=== PATIENT | male | born 1990 | race Caucasian/White ===

== ENCOUNTER 2022-10-26 13:16 | Emergency (ER) | payer BC, SELFPAY ==
[2022-10-26 13:23] VITALS: BP 131/78; PULSE 80; RESP 18; TEMP 36.6; O2SAT 97; BMI 33.2
--- NOTE | 2022-10-26 13:31 | CRLHL7_ITS ---
For Patients: As a result of the Century Cures Act, medical imaging exams and procedure reports are released immediately into your electronic medical record. You may view this report before your referring provider. If you have questions, please contact your health care provider. Indication: Testicular pain. Technique: Ultrasound of the scrotum and contents. Sonographic temple-scale images were obtained with spectral and color Doppler waveform and spectral waveform analysis of the testicles. Comparison: None. Findings: Both testicles are normal in size and echotexture. No masses. No suspicious calcifications. Arterial and venous color Doppler blood flow and spectral waveforms are present in both testicles. Epididymis: Unremarkable bilaterally. Normal blood flow. Other: No significant hydrocele. No sign of varicocele. Scrotal wall is normal. Left inguinal hernia with neck measuring approximately 1.5 cm. Impression: 1. No testicular torsion. 2. Findings suggestive of a left inguinal hernia, with neck measuring approximately 1.5 cm Dictated by Bonifacio Paredes MD @ 10/26/2022 3:03:52 PM (Electronically Signed)
--- NOTE | 2022-10-26 16:34 | ED_ITS ---
HPI - General Adult General Chief complaint: Urogenital Problems, Male Stated complaint: Testicular pain Time Seen by Provider: 10/26/22 16:17 Source: patient Mode of arrival: ambulatory Limitations: no limitations History of Present Illness HPI narrative: 32-year-old male coming in today complaining of testicular pain for the last 2 days. Pain is worse when walking. Does not wake him up at night. He denies na usea, vomiting or fevers. No chills. No pain with urination. No penile discharge. No sexual partners in about a year. No rectal pain. He denies any testicular swelling or erythema. Pain is mild and waxes and wanes. Related Data Home Medications Medication Instructions Recorded Confirmed trazodone 50 mg tablet 50 mg PO QPM 10/26/22 10/26/22 Allergies Allergy/AdvReac Type Severity Reaction Status Date / Time No Known Allergies Allergy Verified 10/26/22 12:14 Review of Systems Status of ROS: Reports: 6 or more systems reviewed and unremarkable except as noted in History and below PFSH PFS Medical History Depression ?F32.A - Depression, unspecified (ICD-10) History of back problems Family History Mother Thyroid cancer Maternal Grandmother Throat cancer Lung cancer Social History Smoking Status: Former smoker What tobacco products do you use: cigarettes Smoking quit date/years: <= 15 years ago Do you use any of these nicotine containing products: None Second hand tobacco smoke exposure: No service: No Exam Narrative: Exam Narrative: Well-nourished well-developed patient in no acute distress. Alert and oriented. Answers questions appropriately. Mood and affect are appropriate. Thoughts are goal oriented and rational. No tangential or magical thinking noted. Patient speaks in full sentences without needing to catch his breath. HEENT: Normocephalic atraumatic. Pupils are equally round reactive to light. Extraocular muscles are intact. Conjunctivae are moist without any icterus noted. Moist mucous membranes. : Normal external male genitalia. No swelling or erythema present. Right testicle is entirely normal. Left testicle has no tenderness over the testicle itself, he has acute tenderness directly over the epididymis. Penis entirely normal. There is no inguinal lymphadenopathy. Skin: Well perfused without any obvious rashes. Const: Vital Signs, click to edit/add: Vital Signs - 24 hr 10/26/22 13:23 Temperature 97.9 F Pulse Rate [Right Pulse Oximeter] 80 Respiratory Rate 18 Blood Pressure [Ri ght Upper Arm] 131/78 Pulse Oximetry 97 Oxygen Delivery Me thod Room Air Course Course ED Course: Patient did have an ultrasound done up prior to me seeing him, ultrasound shows a small left-sided inguinal hernia. Vital Signs Vital signs: Initial Vital Signs Temperature 97.9 F 10/26/22 13:23 Temperature Source Temporal Artery Scan 10/26/22 13:23 Pulse Rate 80 10/26/22 13:23 Respiratory Rate 18 10/26/22 13:23 Blood Pressure 131/78 10/26/22 13:23 Blood Pressure Mean 95 10/26/22 13:23 Blood Pressure Position Sitting 10/26/22 13:23 Pulse Oximetry 97 10/26/22 13:23 Oxygen Delivery Method Room Air 10/26/22 13:23 Vital Signs Temperature 97.9 F 10/26/22 13:23 Pulse Rate 80 10/26/22 13:23 Respiratory Rate 18 10/26/22 13:23 Blood Pressure 131/78 10/26/22 13:23 Pulse Oximetry 97 10/26/22 13:23 Oxygen Delivery Method Room Air 10/26/22 13:23 Temperature 97.9 F 10/26/22 13:23 Pulse Rate 80 10/26/22 13:23 Respiratory Rate 18 10/26/22 13:23 Blood Pressure 131/78 10/26/22 13:23 Pulse Oximetry 97 10/26/22 13:23 Oxygen Delivery Method Room Air 10/26/22 13:23 Medical Decision Making MDM Narrative Medical decision making narrative: 32-year-old male with clinical diagnosis of epididymitis. We will check a GC chlamydia prior to discharge today. Patient will be given Rocephin IM and oral azithromycin prior to discharge. Recommend follow-up with General surgery to discuss inguinal hernia. Lab Data Labs: Lab Results 10/26/22 Range/Units 16:58 C.trachomatis Ampl DNA NOT DETECTED (No Detected) N.gonorrhoeae Ampl DNA NOT DETECTED (No Detected) Imaging Data Scrotal ultrasound: Attestation: I have reviewed the pertinent imaging results. Radiologist's impression: Ultrasound of the scrotum and contents. Sonographic temple-scale images were obtained with spectral and color Doppler waveform and spectral waveform analysis of the testicles. Comparison: None. Findings: Both testicles are normal in size and echotexture. No masses. No suspicious calcifications. Arterial and venous color Doppler blood flow and spectral waveforms are present in both testicles. Epididymis: Unremarkable bilaterally. Normal blood flow. Other: No significant hydrocele. No sign of varicocele. Scrotal wall is normal. Left inguinal hernia with neck measuring approximately 1.5 cm. Impression: 1. No testicular torsion. 2. Findings suggestive of a left inguinal hernia, with neck measuring approximately 1.5 cm Discharge Plan Discharge Clinical Impression: Epididymitis Condition: Stable Additional Instructions: Ultrasound shows a small left-sided hernia. Recommend you follow-up with a general surgeon to discuss possible repair of this hernia. This is not an emergency. Prescriptions: No Action trazodone 50 mg tablet 50 mg PO QPM Follow Up/Referrals: Provider,Not a Local [Primary Care Provider] - Stand Alone Forms: MyHealth Info Instructions
[2022-10-26] MEDS: AZITHROMYCIN 250 MG TABLET 1000 MG PO (16:48)
[2022-10-26] MEDS: cefTRIAXone 500 MG VIAL IM (16:48)
[2022-10-26] MEDS: LIDOCAINE 1% 5 ml (pf) 5 ML VIAL 1 ML IM (16:48)
[2022-10-26 18:53] LABS: Chlamydia DNA Amplified* NOT DETECTED (No Detected); GC DNA Amplified* NOT DETECTED (No Detected)
== END 2022-10-26 17:11 | disposition home or self-care (01) ==
PROVIDERS: Emergency Provider Family Medicine
DX: N45.1 Epididymitis (principal)
CPT/HCPCS: 76870; 87491; 87591; 93976; 96372; 99283; 99284; A9270; J0696

== ENCOUNTER 2023-07-30 11:02 | Outpatient (CLI) | payer OTHER, SELFPAY ==
--- OUTSIDE RECORDS SUMMARY | 2023-07-31 23:10 | XMS_ITS | Clinical Summary ---
Author Organization [facility] Address [address] [place] [address] Care Team Providers Care Cottrell Blower Name Role Phone Elsewhere, Pcp Primary Care Provider Unavailabl e Source Comments Patient records contain information from all sites at [facility]. For routine questions regarding patient records, call [phone] during business hours, M-F 8:00 AM - 5:00 PM Central Time. Record requests for emergency care only can be directed to [phone] at any time.[facility] Allergies No known active allergies Medications Medication [...] age to complete this topic Care Teams Cottrell Blower Relationship Specialty Start Date End Date Elsewhere, Pcp PCP - General Internal Medicine 06/21/18
--- OUTSIDE RECORDS SUMMARY | 2023-07-31 23:10 | XMS_ITS | Clinical Summary ---
Author Organization [facility] Address [place], [place] [address] Care Team Providers Care Well Service Derrick Worker Name Role Phone [facility] Primary Care Provider Unavail able Allergies No known active allergies Medications Medication Sig Dispensed Refills Start Date End Date Status sertraline (ZOLOFT) 100 mg tabletIndications:Border line personality disorder (HC),Generalized anxiety disorder,Major depressive disorder, recurrent, severe without psychotic features (HC),Persistent depressive disorder,Posttraumatic stress disorder,Alcohol use disorder, severe, in early remission (HC) Take 1 Tablet (100 mg) by mouth once daily. 90 Tablet 05/22/19 24 024 Discontinued (*Medication adjustment) traZODone (DESYREL) 50 mg tabletIndications:Major depressive disorder, recurrent, severe without psychotic features (HC) Take 1 Tablet (50 mg) by mouth at bedtime if needed for Sleep. 90 Tablet 3 05/22/19 24 Suspended Additional Information durable medical equipment (DME)Indications:Carpal tunnel syndrome on both sides Wrist brace rt and lft 06/29/19 24 Suspended Additional Information atorvastatin (LIPITOR) 20 mg tabletIndications:Famili al hypercholesterolemia Take 1 Tablet (20 mg) by mouth at bedtime. 100 Tablet 3 07/05/19 24 Suspended Additional Information sertraline (ZOLOFT) 25 mg tabletIndications:Alcoho l use disorder, severe, in early remission (HC),Borderline personality disorder (HC),Generalized anxiety disorder,Major depressive disorder, recurrent, severe without psychotic features (HC),Persistent depressive disorder,Posttraumatic stress disorder Take 1 Tablet (25 mg) by mouth once daily. In addition to a 50 mg tablet for a total of 75 mg once daily 30 Tablet 2 07/19/19 24 Suspended Additional Information sertraline (ZOLOFT) 50 mg tabletIndications:Genera lized anxiety disorder,Major depressive disorder, recurrent, severe without psychotic features (HC),Persistent depressive disorder,Posttraumatic stress disorder Take 1 Tablet (50 mg) by mouth once daily. 30 Tablet 2 07/19/19 24 Suspended Additional Information ibuprofen (ADVIL; MOTRIN) 600 mg tabletIndications:Acute pain of right shoulder Take 1 Tablet (600 mg) by mouth three times daily with meals. Maximum of 3200 mg in 24 hours. 42 Tablet 1 07/27/19 24 Suspended Additional Information omeprazole (PRILOSEC) 40 mg Delayed-Release capsuleIndications:Gastr ic reflux Take 1 Capsule (40 mg) by mouth once daily before a meal. 14 Capsule 07/27/19 Suspended Additional Information Active Problems Problem Noted Date Diagnosed Date Aspiration pneumonia of left lower lobe due to v omit 07/31/2023 Acute respiratory failure 07/30/2023 Observed seizure-like activity 07/30/2023 Continuous cannabis use 07/19/2023 Mixed hyperlipidemia 10/26/2021 [...] Encounters Date Type Department Care Team Description 07/31/2023 Travel 07/30/2023 2:32 PM CDT - Present Hospital Encounter [address] [facility] [id number] s, U Hospitalist Luca Spaulding MD 07/27/2023 10:10 AM CDT Office Visit [address] [facility] [phone] Mike Perdue MD [facility]; Shoulder Injury (Stepped off equipment, as falling, over extended shoulder; right shoulder ); Ankle Injury; Follow Up (Seen at [facility] the day of injury on 07/22/23; Seen by Dr. Brian for a follow up; Work Comp wants patient to continue to be seen through [facility] ) 07/27/2023 Travel 07/23/2023 7:30 AM CDT Office Visit [address] [phone] Krunal Brian MD Follow Up (left ankle and right shoulder injury) 07/23/2023 Travel 07/22/2023 12:55 PM CDT Office Visit [facility] [address] [place] [phone] Fall 07/22/2023 Travel 07/19/2023 2:00 PM CDT Office Visit [facility] [address] [place] [address] Preston Yee MD Follow Up; Medication Management (feeling, I'm doing well, it's my day off) 07/19/2023 Telephone [facility] [address] [place] [address] Preston Yee MD Form (release of information form) 07/19/2023 Travel 06/29/2023 7:50 AM CDT Office Visit [facility] [address] [place] [address] Imelda Denis MD Numbness (both hands, couple months, painful numbness, thumb middle and ring finger primarily) 06/29/2023 Travel 06/25/2023 Telephone [facility] [address] [place] [address] Preston Yee MD Follow Up 05/30/2023 Telephone [facility] [address] [place] [address] Preston Yee MD 05/30/2023 Telephone [facility] [address] [place] [address] Preston Yee MD Appointment (Appt on 06/06, N/V) 05/22/2023 2:00 PM CDT Office Visit [facility] [address] [facility] [place] [address] Preston Yee MD Medication Management (Things are so so) 05/22/2023 Travel 05/18/2023 8:30 AM CDT Telemedicine [facility] [address] [place] [address] Preston Yee MD Error-please disregard; Medication Management (feeling, pretty good, really good) 05/18/2023 Travel 05/14/[address] [address] Preston Yee MD Refill Request (Trazodone) 05/10/2023 Refill [facility] [address] [place] [address] Preston Yee MD Refill Request (Trazodone) 05/08/2023 1:30 PM CDT Office Visit [facility] [address] [place] [address] Bárbara Manning, Vomiting (1 day); Nausea 05/08/2023 Nurse Triage [facility] [address] [place] [address] Bárbara Manning, Vomiting (Vomitting started this am at 2am dry heaves later) 05/08/2023 Travel from Last 3 Months Immunizations Name Administration Dates Next Due COVID-19 vaccine (AppSheet 30mcg/0.3mL) 12YO+ JESSICA-SUCROSE PF MDV 03/23/2021,03/02/2021 Hepatitis B (Peds) 04/14/2002 Influenza [...] Sign Reading Time Taken Comments Blood Pressure 122/59 07/31/2023 10:00 PM CDT Pulse 62 07/31/2023 10:00 PM CDT Temperature 37.7 ??C (99.8 ??F) 07/31/2023 8:00 PM CD T Respiratory Rate 16 07/31/2023 10:00 PM CDT Oxygen Saturation 97% 07/31/2023 10:00 PM CDT Inhaled Oxygen Concentration - - Weight 89.7 kg (197 lb 12 oz) 07/31/2023 2:00 AM CDT Height 182.9 cm (6') 07/30/2023 2:55 PM CDT Body Mass Index 26.82 07/30/2023 2:55 PM CDT Plan of Treatment Upcoming Encounters Date Type Department Care Team (Late st Contact Info) Description 08/10/2023 8:00 AM CDT Office Visit [facility] [address] [place] [address] Preston Yee MD [address] [place] [address] 08/10/2023 9:10 AM CDT Office Visit [address] [phone] Mike Perdue MD [address] [place] [address] 08/31/2023 8:00 AM CDT Office Visit [facility] [address] [place] [address] Preston Yee MD [address] [place] [address] 09/20/2023 8:00 AM CDT Office Visit [facility] [address] [place] [address] Preston Yee MD [address] [place] [address] 10/12/2023 8:00 AM CDT Office Visit [facility] [address] [place] [address] Preston Yee MD [address] [place] [address] 11/02/2023 8:00 AM CDT Office Visit [facility] [address] [place] [address] Preston Yee MD [address] [place] [address] Health Maintenance Due Date Last Done Comments [...] for age 6-64 Completed 06/29/19 24 Procedures The patient is currently admitted. The information in this section might not be complete until the patient is discharged. Procedure Name Priority Date/Time Associated Diagnosis Comments POTASSIUM Timed 07/31/2023 10:29 PM CDT XR CHEST 1 VIEW PORTABLE STAT 07/31/2023 9:53 PM CDT GLUCOSE METER Timed 07/31/2023 9:25 PM CDT SCAN-CARDIAC STRIP 07/31/2023 6: 58 PM CDT GLUCOSE METER Timed 07/31/2023 5:13 PM CDT URINALYSIS MICROSCOPIC Timed 07/31/2023 3:55 PM CDT PROTEIN/CREAT RATIO,URINE Today 07/31/2023 3:55 PM CDT UA W/ SEDIMENT EXAM REFLEXED PER CRITERIA Today 07/31/2023 3:55 PM CDT TROPONIN T (HS) ONE TIME Today 07/31/2023 1:13 PM CDT PROCALCITONIN Today 07/31/2023 1:13 PM CDT LACTATE VENOUS Today 07/31/2023 1:13 PM CDT PROTIME-INR Today 07/31/2023 1:13 PM CDT POTASSIUM Timed 07/31/2023 1:13 PM CDT GLUCOSE METER Timed 07/31/2023 12:26 PM CDT IR LUMBAR PUNCTURE DIAGNOSTIC W GUIDANCE Routine 07/31/2023 12:09 PM CDT PROTEIN CSF,TOTAL SOLITARIO 07/31/2023 12: 00 PM CDT SPINAL FLUID CULT, STAIN Today 07/31/2023 12:00 PM CDT MENINGITIS/ENCEPHALIT IS PATHOGEN PANEL, MULTIPLEX PCR (CSF) Today 07/31/2023 12:00 PM CDT GLUCOSE,CSF Routine 07/31/2023 12:00 PM CDT CSF CELL COUNT/DIFF Today 07/31/2023 1 2:00 PM CDT ECHO TTE COMPLETE W CONTRAST Routine 07/31/2023 11:30 AM CDT SCAN-CARDIAC STRIP 07/31/2023 11 :06 AM CDT US RENAL AND BLADDER COMPLETE Routine 07/31/2023 7:55 AM CDT XR CHEST 1 VIEW PORTABLE Routine 07/31/2023 5:20 AM CDT CWS PATH REVIEW HEMATOLOGY Timed 07/31/2023 4:49 AM CDT RED CELL MORPHOLOGY Timed 07/31/2023 4 :49 AM CDT PLATELET ESTIMATE Timed 07/31/2023 4:4 9 AM CDT MANUAL DIFFERENTIAL Timed 07/31/2023 4 :49 AM CDT HEPATIC FUNCTION PANEL SOLITARIO 07/31/2023 4:49 AM CDT PHOSPHORUS SOLITARIO 07/31/2023 4:49 AM CDT CBC WITH AUTO DIFFERENTIAL Early AM 07/31/2023 4:49 AM CDT MAGNESIUM Early AM 07/31/2023 4:49 AM CDT LEVETIRACETAM (KEPPRA) Timed 07/31/2023 4:49 AM CDT CBC WITH AUTO DIFFERENTIAL Early AM 07/31/2023 4:49 AM CDT BASIC METABOLIC PANEL Early AM 07/31/2023 4:49 AM CDT CK TOTAL Timed 07/31/2023 4:49 AM CDT TRIGLYCERIDES Timed 07/31/2023 4:49 AM CDT GLUCOSE METER Timed 07/31/2023 4:48 AM CDT MR HEAD BRAIN WWO Routine 07/31/2023 4:3 2 AM CDT XR SKULL EQUAL OR LESS 3 VIEWS Routine 07/31/2023 3:23 AM CDT GLUCOSE METER Timed 07/30/2023 10:53 PM CDT PHOSPHORUS Timed 07/30/2023 10:10 PM CDT BH STAT DRUG SCREEN STAT 07/30/2023 7 :59 PM CDT LACTATE VENOUS Timed 07/30/2023 6:18 PM CDT AMMONIA Today 07/30/2023 6:18 PM CDT ETHYLENE GLYCOL Today 07/30/2023 6:18 PM CDT BLOOD CULTURE Today 07/30/2023 4:46 PM CDT BLOOD GAS,VENOUS STAT 07/30/2023 4:45 PM CDT BLOOD CULTURE Today 07/30/2023 4:45 PM CDT GLUCOSE METER Timed 07/30/2023 4:33 PM CDT CK TOTAL SOLITAIRO 07/30/2023 3:49 PM CDT TROPONIN T (HS) ONE TIME SOLITARIO 07/30/2023 3:49 PM CDT CBC WITH AUTO DIFFERENTIAL Today 07/30/2023 3:49 PM CDT ETHANOL SERUM OR PLASMA Today 07/30/2023 3:49 PM CDT CBC WITH AUTO DIFFERENTIAL Today 07/30/2023 3:49 PM CDT PHOSPHORUS Today 07/30/2023 3:49 PM CDT MAGNESIUM Today 07/30/2023 3:49 PM CDT BASIC METABOLIC PANEL Today 07/30/2023 3:49 PM CDT HEMOGLOBIN A1C Today 07/30/2023 3:49 PM CDT LACTATE VENOUS Today 07/30/2023 3:49 PM CDT XR ABDOMEN 1 VIEW PORTABLE Routine 07/30/2023 3:22 PM CDT XR CHEST 1 VIEW PORTABLE SOLITARIO 07/30/2023 3:22 PM CDT HEPATIC FUNCTION PANEL Routine 06/29/2023 8:35 AM CDT Transaminitis LIPID PANEL W REFLEX MEASURED LDL Routine 06/29/2023 8:35 AM CDT Mixed hyperlipidemia ANTI HCV Routine 10/25/2021 8:37 AM CDT Need for hepatitis C screening test ANTI HIV 1/2 Routine 03/29/2015 5:28 PM [employer]ENIOR CHEMICAL ENGINEER Screen for STD (sexually transmitted disease) from Last 3 Months or Most Recently Relevant to Health Maintenance Results * POTASSIUM (07/31/2023 10:29 PM CDT) Only the most recent of2 resultswithin the time period is included. POTASSIUM 4.3 3.5 - 5.1 mmol/L 07/31/2023 10:46 PM CDT [facility] Blood BLOOD SPECIMEN / Unknown Venipuncture / Unknown 07/31/2023 10:29 PM CDT 07/31/2023 10:32 PM CDT Moi Chahal RN CHEMISTRY [facility] SENDOUT INTERNAL ZIP [phone] [place] [address] * XR CHEST 1 VIEW PORTABLE (07/31/2023 9:53 PM CDT) Only the most recent of3 resultswithin the time period is included. Anatomical Region Laterality Modality HEART, THORAX, CHEST Computed Ra diography 07/31/2023 9:53 PM CDT Impressions 07/31/2023 10:04 PM CDT Heart size and pulmonary vascularity normal. Opacities within the the right lower lung field are new since the earlier exam and could represent subsegmental atelectasis or developing pneumonia. No effusions. Endotracheal tube tip 3.8 cm above the caleb. Enteric tube is coiled in the proximal stomach. Narrative 07/31/2023 10:04 PM CDT For Patients: As a result of the Cures Act, medical imaging exams and procedure reports are released immediately into your electronic medical record. You may view this report before your referring provider. If you have questions, please contact your health care provider. EXAM: XR CHEST 1 VIEW PORTABLE LOCATION: [facility] DATE: 07/31/2023 INDICATION: Eval Lung Infiltrate COMPARISON: 07/31/2023 Procedure Note Corey Funk MD - 07/31/2023 For Patients: As a result of the Cures Act, medical imagingexams and procedure reports are released immediately into your electronicmedical record. You may view this report before your referring provider.If you have questions, please contact your health care provider. EXAM: XR CHEST 1 VIEW PORTABLE LOCATION: [facility] DATE: 07/31/2023 INDICATION: Eval Lung Infiltrate COMPARISON: 07/31/2023 IMPRESSION: Heart size and pulmonary vascularity normal. Opacities within the theright lower lung field are new since the earlier exam and could representsubsegmental atelectasis or developing pneumonia. No effusions.Endotracheal tube tip 3.8 cm above the caleb. Enteric tube is coiled inthe proximal stomach. [facility] * GLUCOSE METER (07/31/2023 9:25 PM CDT) Only the most recent of6 resultswithin the time period is included. GLUCOSE METER 97 65 - 100 mg/dL 07/31/2023 9:30 PM CDT [facility] Blood BLOOD SPECIMEN / Unknown 07/31/2023 9:25 PM CDT 07/31/2023 9:30 PM CDT Luca Carpio MD CHEMISTRY [facility] SENDOUT INTERNAL ZIP [phone] [place] [address] * SCAN-CARDIAC STRIP (07/31/2023 6:58 PM CDT) Scanner OTHER * (ABNORMAL) URINALYSIS MICROSCOPIC (07/31/2023 3:55 PM CDT) RBC 6-10(A) 0-2, None Seen /HPF 07/31/2023 5:18 PM CDT [facility] WBC 0-2 0-2, 3-5, None Seen /HPF 07/31/2023 5:18 PM CDT [facility] BACTERIA None Seen None Seen, Rare, Few Bacteria/ HPF 07/31/2023 5:18 PM CDT [facility] EPITHELIAL CELLS None Seen None Seen, Few Epi/HPF 07/31/2023 5:18 PM CDT [facility] HYALINE CASTS 3-5 0-2, 3-5 /LPF 07/31/2023 5:18 PM CDT [facility] URIC ACID CRYSTALS Present(A) (none) 07/31/2023 5:18 PM CDT [facility] Urine URINE SPECIMEN / Unknown Non-Blood / Unknown 07/31/2023 3:55 PM CDT 07/31/2023 4:22 PM CDT Kranthi Camejo MD URINE [facility] SENDOUT INTERNAL ZIP [phone] [place] [address] * (ABNORMAL) PROTEIN/CREAT RATIO,URINE (07/31/2023 3:55 PM CDT) PROTEIN QUANT,RAND URINE 24(H) 1 - 14 mg/dL 07/31/2023 4:54 PM CDT [facility] CREAT,RANDOM URINE 108.0 39.0 - 259.0 mg/dL 07/31/2023 4:54 PM CDT [facility] PROT/CREAT RATIO,UR 0.2(H) <0.2 07/31/2023 4:54 PM CDT [facility] Urine URINE SPECIMEN / Unknown Non-Blood / Unknown 07/31/2023 3:55 PM CDT 07/31/2023 4:22 PM CDT Kranthi Camejo MD URINE [facility] SENDOUT INTERNAL ZIP [phone] [place] [address] * (ABNORMAL) UA W/ SEDIMENT EXAM REFLEXED PER CRITERIA (07/31/2023 3:55 PM CDT) COLOR Yellow Yellow Color 07/31/2023 4:29 PM CDT [facility] CLARITY Cloudy(A) Clear Clarity 07/31/2023 4:29 PM CDT [facility] SPECIFIC GRAVITY,URINE 1.015 1.010, 1.015, 1.020, 1.025 07/31/2023 4:29 PM CDT [facility] PH,URINE 5.5 6.0, 7.0, 8.0, 5.5, 6.5, 7.5, 8.5 07/31/2023 4:29 PM CDT [facility] UROBILINOGEN, QUALITATIVE Normal Normal EU/dl 07/31/2023 4:29 PM CDT [facility] PROTEIN, URINE Trace(A) Negative mg/dL 07/31/2023 4:29 PM CDT [facility] GLUCOSE, URINE Negative Negative mg/dL 07/31/2023 4:29 PM CDT [facility] KETONES,URINE Negative Negative mg/dL 07/31/2023 4:29 PM CDT [facility] BILIRUBIN,URI NE Negative Negative 07/31/2023 4:29 PM CDT [facility] OCCULT BLOOD,URINE Negative Negative 07/31/2023 4:29 PM CDT [facility] NITRITE Negative Negative 07/31/2023 4:29 PM CDT [facility] LEUKOCYTE ESTERASE Trace(A) Negative 07/31/2023 4:29 PM CDT [facility] Urine URINE SPECIMEN / Unknown Non-Blood / Unknown 07/31/2023 3:55 PM CDT 07/31/2023 4:22 PM CDT Kranthi Camejo MD URINE [facility] SENDOUT INTERNAL ZIP [phone] [place] [address] * (ABNORMAL) TROPONIN T (HS) ONE TIME (07/31/2023 1:13 PM CDT) Only the most recent of2 resultswithin the time period is included. TROPONIN T HS 25(H) 6-15 ng/L ng/L 07/31/2023 1:51 PM CDT [facility] Blood BLOOD SPECIMEN / Unknown Capillary / Unknown 07/31/2023 1:13 PM CDT 07/31/2023 1:27 PM CDT Narrative [facility] - 07/31/2023 1:51 PM CDT hs-cTnT (Elecsys Troponin T Gen 5) concentration (s) above the sex-specific 99th percentile (16 ng/L or greater for males or 11 ng/L or greater for females) are indicative of myocardial injury. If initial hs-cTnT <=100 ng/L at presentation, a 0h/2h ABSOLUTE (ng/L) delta change (rising or falling) of >=10 ng/L suggests a significant change, whereas a 0h/2h delta change <=3 ng/L suggests no significant change. If initial hs-cTnT >100 ng/L at presentation, a 0h/2h/ RELATIVE (percent, %) delta change of 20% is suggested to distinguish patients with acute vs. chronic myocardial injury. There are multiple etiologies that can cause hs-cTnT increases above the 99th percentile (myocardial injury) other than acute myocardial infarction. Clinical context and careful clinical evaluation are critical for diagnosis and risk-stratification. The diagnosis of acute myocardial infarction requires a rising and/or falling pattern in hs-cTnT concentrations with at least one value above the sex-specific 99th percentile PLUS at least one of the following clinical criteria: ischemic symptoms, new or presumed new significant ST-T wave changes or new LBBB, development of pathological Q waves, imaging evidence of new loss of viable myocardium or new regional wall motion abnormality, or identification of intracoronary atherothrombosis or an acute angiographic culprit on coronary angiography. In appropriate low-risk patients with a non-ischemic electrocardiogram without active chest pain with a symptom onset >3-hours without recurrence, a single initial hs-cTnT<6 ng/L identifies patient with a very low risk in emergency department patient population. Cindi Erickson NP CHEMISTRY Performing Organization Address City/[facility]/ZIP Co de Phone Number [facility] SENDOUT INTERNAL ZIP [phone] [place] [address] * LACTATE VENOUS (07/31/2023 1:13 PM CDT) Only the most recent of3 resultswithin the time period is included. LACTATE,VENOUS 1.7 0.5 - 2.0 mmol/L 07/31/2023 1:51 PM CDT [facility] Blood BLOOD SPECIMEN / Unknown Capillary / Unknown 07/31/2023 1:13 PM CDT 07/31/2023 1:27 PM CDT Mulu BOWSER CHEMISTRY Performing Organization Address [facility]/ZIP Co de Phone Number [facility] SENDOUT INTERNAL ZIP [phone] [place] [phone] * PROCALCITONIN (07/31/2023 1:13 PM CDT) PROCALCITONIN 0.11 ng/ml 07/31/2023 1:59 PM CDT [facility] Blood BLOOD SPECIMEN / Unknown Capillary / Unknown 07/31/2023 1:13 PM CDT 07/31/2023 1:27 PM CDT Narrative [facility] - 07/31/2023 1:59 PM CDT Procalcitonin for initial assessment of Lower Respiratory Tract Infection: Results Interpretation <0.10 ng/mL Antibiotic therapy strongly discoraged. ??Indicates absent of bacterial infection. * 0.10 - 0.25 ng/mL Antibiotic therapy discouraged. ??Bacterial infection unlikely. * 0.26 - 0.50 ng/mL Antibiotic therapy encouraged. ??Bacterial infection possible. >0.50 ng/mL Antibiotic therapy strongly encouraged. ??Suggestive of presence of bacterial infection. *Antibiotic therapy should be considered regardless of PCT result if the patient is clinically unstable, is at high risk for adverse outcome, has strong evidence of bacterial pathogen, or the clinical context indicates antibiotic therapy is warranted. ??If antibiotics are withheld, reassess if symptoms persist/worsen and/or repeat PCT measurement within 6-24 hours. ? In order to assess treatment success and to support a decision to discontinue antibiotic therapy, follow up samples should be tested once every 1-2 days, based upon physician discretion taking into account patient's evolution and progress. Procalcitonin for initial assessment of severe sepsis risk: Results Interpretation <0.5 ng/ml A PCT level below 0.5 ng/ml on the first day of ICU admission is associated with a low risk for progression to severe sepsis and/or septic shock. > 2.0 ng/mL A PCT level above 2.0 ng/mL on the first day of ICU admission is associated with a high risk for progression to severe sepsis and/or septic shock. Note: Concentrations < 0.5 ng/mL do not exclude an infection, on account of localized infections (without systemic signs) which can be associated with such low concentrations, or a systemic infection in its initial stages(< 6 hours). Furthermore, increased procalcitonin can occur without infection. PCT concentrations between 0.5 and 2.0 ng/mL should be interpreted taking into account the patient's history. It is recommended to retest PCT within 6-24 hours if any concentrations < 2 ng/mL are obtained. Mulu [facility] S[facility] SENDOUT INTERNAL [facility] [phone] [place] [address] * (ABNORMAL) PROTIME-INR (07/31/2023 1:13 PM CDT) INR 1.1 <1.3 07/31/2023 1:39 PM CDT [facility] PROTIME 12.7(H) 10.3 - 12.3 sec 07/31/2023 1:39 PM CDT [facility] Blood BLOOD SPECIMEN / Unknown Capillary / Unknown 07/31/2023 1:13 PM CDT 07/31/2023 1:27 PM CDT Narrative [facility] - 07/31/2023 1:39 PM CDT ?Therapeutic Range 2.0-3.0 for most anticoagulated patients 2.5-3.5 or 4.0 for high risk patients The INR is only used for patients on stable oral anticoagulant therapy. It makes no significant contribution to the diagnosis or treatment of patients whose Protime is prolonged for other reasons. INR results are increased when heparin levels exceed 1.0 U/mL, which corresponds to an aPTT >125 seconds if the patient is on UFH. Mulu [facility]AS HEMATOLOGY [facility] SENDOUT INTERNAL ZIP [phone] [place] [address] * IR LUMBAR PUNCTURE DIAGNOSTIC W GUIDANCE (07/31/2023 12:09 PM CDT) Anatomical Region Laterality Modality X-Ray Angiograph y, Other, Other 07/31/2023 12:0 9 PM CDT Impressions 07/31/2023 9:32 PM CDT CONCLUSION: 1. Fluoroscopically-guided lumbar puncture yielding 12 mL of clear, colorless cerebrospinal fluid. 2. See lab results for further details. CPT codes included for physician reference only: [id number] Narrative 07/31/2023 9:32 PM CDT For Patients: As a result of the Century Cures Act, medical imaging exams and procedure reports are released immediately into your electronic medical record. You may view this report before your referring provider. If you have questions, please contact your health care provider. [facility] FLUOROSCOPICALLY GUIDED LUMBAR PUNCTURE 07/31/2023 12:09 PM CDT OPERATIONS: FLUOROSCOPICALLY GUIDED LUMBAR PUNCTURE INDICATION: 32-year-old with seizures, status epilepticus. Lumbar puncture has been requested to obtain cerebrospinal fluid (CSF) for analysis. CONSENT: The procedure and its indications, major risks, benefits, and alternatives were discussed. Risks including, but not limited to, pain, headache, hemorrhage, infection, nerve damage, spinal cord damage, and allergic reaction were discussed. Understanding was acknowledged, and a signed informed consent was obtained. FLUOROSCOPIC TIME: 0.6 minutes AIR KERMA: 15 mGy ESTIMATED BLOOD LOSS: Minimal PERFORMING PHYSICIAN(S): Denver Gao M.D. PROCEDURE: The patient was placed in the prone position upon the fluoroscopic table. The skin of the back was prepped and draped in sterile fashion. Using fluoroscopic guidance, the L4-5 level was localized. The skin was infiltrated with 1% lidocaine. Using direct fluoroscopic visualization, a 20 gauge spinal needle was advanced into the thecal sac at the L4-5 level. 12 mL of clear, colorless CSF was obtained in total. This was divided between 4 labeled tubes. The needle was then removed. A dressing was applied. The procedure appeared well-tolerated. There was no apparent complication. Procedure Note Denver Gao MD - 07/31/2023 For Patients: As a result of the Century Cures Act, medical imagingexams and procedure reports are released immediately into your electronicmedical record. You may view this report before your referring provider.If you have questions, please contact your health care provider. [facility] FLUOROSCOPICALLY GUIDED LUMBAR PUNCTURE 07/31/2023 12:09 PM CDT OPERATIONS: FLUOROSCOPICALLY GUIDED LUMBAR PUNCTURE INDICATION: 32-year-old with seizures, status epilepticus. Lumbar puncturehas been requested to obtain cerebrospinal fluid (CSF) for analysis. CONSENT: The procedure and its indications, major risks, benefits, andalternatives were discussed. Risks including, but not limited to, pain,headache, hemorrhage, infection, nerve damage, spinal cord damage, andallergic reaction were discussed. Understanding was acknowledged, and asigned informed consent was obtained. FLUOROSCOPIC TIME: 0.6 minutes AIR KERMA: 15 mGy ESTIMATED BLOOD LOSS: Minimal PERFORMING PHYSICIAN(S): Denver Gao M.D. PROCEDURE: The patient was placed in the prone position upon thefluoroscopic table. The skin of the back was prepped and draped in sterilefashion. Using fluoroscopic guidance, the L4-5 level was localized. Theskin was infiltrated with 1% lidocaine. Using direct fluoroscopicvisualization, a 20 gauge spinal needle was advanced into the thecal sacat the L4-5 level. 12 mL of clear, colorless CSF was obtained in total.This was divided between 4 labeled tubes. The needle was then removed. Adressing was applied. The procedure appeared well-tolerated. There was noapparent complication. IMPRESSION: CONCLUSION: 1. Fluoroscopically-guided lumbar puncture yielding 12 mL of clear,colorless cerebrospinal fluid. 2. See lab results for further details. CPT codes included for physician reference only: [id number] Mulu VARGAS IR * MENINGITIS/ENCEPHALITIS PATHOGEN PANEL, MULTIPLEX PCR (CSF) (07/31/2023 12:00 PM CDT) Escherichia coli NOT Detected NOT Detected 07/31/2023 4:51 PM CDT [facility] Haemophilus influenza NOT Detected NOT Detected 07/31/2023 4:51 PM CDT [facility] Listeria monocytogenes NOT Detected NOT Detected 07/31/2023 4:51 PM CDT [facility] Neisseria meningitides NOT Detected NOT Detected 07/31/2023 4:51 PM CDT [facility] Streptococcus agalactiae NOT Detected NOT Detected 07/31/2023 4:51 PM CDT [facility] Streptococcus pneumoniae NOT Detected NOT Detected 07/31/2023 4:51 PM CDT [facility] Cytomegalovirus NOT Detected NOT Detected 07/31/2023 4:51 PM CDT [facility] Enterovirus NOT Detected NOT Detected 07/31/2023 4:51 PM CDT [facility] Herpes simplex virus 1 NOT Detected NOT Detected 07/31/2023 4:51 PM CDT [facility] Herpes simplex virus 2 NOT Detected NOT Detected 07/31/2023 4:51 PM CDT [facility] Human herpesvirus 6 NOT Detected NOT Detected 07/31/2023 4:51 PM CDT [facility] Human parechovirus NOT Detected NOT Detected 07/31/2023 4:51 PM CDT [facility] Varicella zoster virus NOT Detected NOT Detected 07/31/2023 4:51 PM CDT [facility] Cryptococcus neoformans/gattii NOT Detected NOT Detected 07/31/2023 4:51 PM CDT [facility] Cerebrospinal Fluid CEREBROSPINAL FLUID SPECIMEN / Unknown Non-Blood / Unknown 07/31/2023 12:00 PM CDT 07/31/2023 12:39 PM CDT [facility] - 07/31/2023 4:51 PM CDT This test detects the presence of nucleic acids of above viral/bacterial targets. NOT Detected (negative) results do not rule out the presence of active central nervous system infection in patients with high risk of meningitis or encephalitis. Negative results should be interpreted in conjunction with patient's clinical context and applicable treatment history. False negative results may occur when the nucleic acid concentration in the specimen is below the limit of detection for the test. Cindi Erickson NP MICROBIOLOGY [facility] [address] [address], * (ABNORMAL) CSF CELL COUNT/DIFF (07/31/2023 12:00 PM CDT) TUBE NUMBER Four 07/31/2023 2:12 PM CDT [facility] CSF COLOR Colorless Colorless 07/31/2023 2:12 PM CDT [facility] CSF CLARITY Clear Clear 07/31/2023 2:12 PM CDT [facility] TOTAL NUCLEATED CELLS, CSF 1 <6 /cu mm 07/31/2023 2:12 PM CDT [facility] RED BLOOD COUNT, CSF 0 <10 /cu mm 07/31/2023 2:12 PM CDT [facility] % NEUTROPHILS, CSF 29(H) <7 % 07/31/2023 2:12 PM CDT [facility] % LYMPHOCYTES, CSF 71 40 - 80 % 07/31/2023 2:12 PM CDT [facility] Cerebrospinal Fluid CEREBROSPINAL FLUID SPECIMEN / Unknown Non-Blood / Unknown 07/31/2023 12:00 PM CDT 07/31/2023 12:39 PM CDT Narrative [facility] - 07/31/2023 2:12 PM CDT CSF MIN VOLUME: 1.0 mL Cindi Erickson INVESTIGATOR UTILITY BILL COMPLAINTS BODY FLUID Performing Organization Address City/[facility]/ZIP Co de Phone Number [facility] SENDOUT INTERNAL [address]IP [address] [address] [place] [address] * PROTEIN CSF,TOTAL (07/31/2023 12:00 PM CDT) PROTEIN CSF,TOTAL 44 15 - 45 mg/dL 07/31/2023 3:13 PM CDT [facility] Cerebrospinal Fluid CEREBROSPINAL FLUID SPECIMEN / Unknown Non-Blood / Unknown 07/31/2023 12:00 PM CDT 07/31/2023 12:38 PM CDT Cindi Erickson INVESTIGATOR UTILITY BILL COMPLAINTS BODY FLUID Performing Organization Address City/[facility]/ZIP Co de Phone Number [facility] SENDOUT INTERNAL ZIP [phone] [place] [address] * GLUCOSE,CSF (07/31/2023 12:00 PM CDT) GLUCOSE,CSF 67 40 - 70 mg/dL 07/31/2023 1:14 PM CDT [facility] Cerebrospinal Fluid CEREBROSPINAL FLUID SPECIMEN / Unknown Non-Blood / Unknown 07/31/2023 12:00 PM CDT 07/31/2023 12:38 PM CDT Cindi Erickson INVESTIGATOR UTILITY BILL COMPLAINTS BODY FLUID Performing Organization Address City/[facility]/ZIP Co de Phone Number [facility] SENDOUT INTERNAL ZIP [address] [place] [address] * ECHO TTE COMPLETE W CONTRAST (07/31/2023 11:30 AM CDT) EJECTION FRACTION 55-60% PROSOLV Anatomical Region Laterality Modality Ultrasound 07/31/2023 10:4 5 AM CDT Narrative 07/31/2023 1:30 [place] [address] Main: [email or web address] ? Transthoracic Echo Report QUINN BELCHER Marinaishmael ID: [id number] Age: 32 : 1990 Ordering Provider: CINDI ERICKSON Exam Date: 07/31/2023 10:45 Gender: M Client Development Manager: [facility] [employer] Height: 72 in BSA: 2.12 m?? BP: 128 / 73 Weight: 197 lbs BMI: 26.7 kg/m?? HR: 63 Location: Inpatient (Portable) Rhythm: Normal Sinus Rhythm Procedure Components: 2D imaging with contrast, Color Doppler, Spectral Doppler Indications: Hypertensive heart disease Technical Quality: Fair, Technically difficult study Contrast: Definity Constrast Dose (ml): 0.3 [facility]#: [id number] Final Conclusion 1. ??Technically challenging study. 2. ??Normal left ventricular size and systolic function. ??Estimated ejection fraction 55 to 60%. ??No regional wall motion abnormalities. 3. ??Normal right ventricular size and systolic function. ??Unable to estimate right ventricular systolic pressure. 4. ??No hemodynamically significant valve disease. 5. ??Tiny apical pericardial effusion without hemodynamic significance. 6. ??Dilated inferior vena cava (of note, patient is intubated). 7. ??No prior study available for comparison. Estimated EF: 55-60% FINDINGS Left Ventricle Normal left ventricular chamber size. Normal left ventricular wall thickness. Normal left ventricular systolic function. Estimated left ventricular ejection fraction is 55-60%. No regional wall motion abnormalities. Diastolic Function Findings consistent with normal left ventricular filling pressure. Right Ventricle Normal right ventricular chamber size. Normal right ventricular systolic function. Right ventricular systolic pressure cannot be estimated due to inability to detect peak tricuspid regurgitation Doppler velocity. Left Atrium Normal left atrial size. Right Atrium Normal right atrial size. Atrial Septum No obvious evidence of inter-atrial shunt by color flow Doppler. Aortic Valve Trileaflet aortic valve. No aortic valve stenosis. No aortic valve regurgitation. Mitral Valve Normal mitral valve. No mitral valve stenosis. Trivial mitral valve regurgitation. Tricuspid Valve Normal tricuspid valve. Trivial tricuspid valve regurgitation. Pulmonic Valve Pulmonary valve was not well visualized. No pulmonary valve regurgitation. Pericardium Tiny pericardial effusion (apical, without hemodynamic significance). Aorta Aortic sinus of Valsalva is normal in size (3.9 cm, ZScore = 1.8). Ascending aorta was not well visualized. Inferior Vena Cava Dilated inferior vena cava with decreased collapse. MEASUREMENTS ??(Male / Female) Normal Values 2D MEASUREMENTS AND LV FUNCTION IVS Diastolic Thickness ? 0.905 cm ?< 1.1 cm / < 1.0 cm LV Diastolic Diameter PLAX ?5.71 cm ? 4.2 - 5.9 / 3.9 - 5.3 cm LV Diastolic Diameter Index ? 2.7 cm/m?? LVPW Diastolic Thickness ?0.792 cm ?< 1.1 cm / < 1.0 cm LV Systolic Diameter PLAX ? 4.45 cm LV Systolic Diameter Index ?2.1 cm/m?? LVOT Diameter ? 2.2 cm LVOT Cardiac Output ? 4.36 l/min LVOT Cardiac Index ?2.03 l/min??m?? LVOT Stroke Volume ?69.2 ml Stroke Volume Index ? 32.3 ml/m?? RV Diastolic Basal Diameter ? 3.28 cm RV Diastolic Mid Diameter ? 2.55 cm LV Mass ? 184 g LV Mass Index ? 86.3 g/m?? Sinuses of Valsalva Diameter(d) ?? 3.9 cm IVC Diameter Expiration ? 2.42 cm M MODE TAPSE MM ?2.33 cm DIASTOLOGY Mitral E Point Velocity ? 0.679 m/sec ? 0.70 - 1.02 m/sec Mitral A Point Velocity ? 0.658 m/sec ? 0.06 - 1.06 m/sec Mitral E to A Ratio ? 1.03 ?1.1 - 2.1 MV Deceleration Time ?188 msec ?167 - 231 msec LV E' Lateral Velocity ?0.149 m/sec Mitral E to LV E' Lateral Ratio ?? 4.56 LV E' Septal Velocity ? 0.11 m/sec Mitral E to LV E' Septal Ratio ?6.17 AORTIC VALVE AV Peak Velocity ?1.23 m/sec ?< 2.0 m/sec AV Peak Gradient ?6.05 mmHg AV Mean Gradient ?3 mmHg AV Velocity Time Integral ? 22.2 cm LVOT Peak Velocity ?1.14 m/sec LVOT Velocity Time Integral ? 18.2 cm AV Area Cont Eq vti ? 3.12 cm?? AV Area Cont Eq pk ?3.52 cm?? AV Dimensionless Index ?0.82 MITRAL VALVE MV Pressure Half Time ? 55 msec MV Area PHT ? 4 cm?? TRICUSPID VALVE AND ESTIMATED PRESSURES Right Atrial Pressure ? 15 mmHg HCM DATA LVOT BEN (r) ?5.2 mmHg Aortic Root ZScore: 1.80 Hussein Ruth MD (Electronically Signed) [facility] Accredited Site Final Date: 31 July 2023 13:30 ICD-10 Codes: Procedure Note Hussein Ruth MD - 07/31/2023 [place] [address] Main: [email or web address] Transthoracic Echo Report YEQUINN BILLINGS Ramiro ID: [id number] Age: 32 : 1990 Ordering Provider:CINDI ERICKSON Exam Date: 07/31/2023 10:45 Gender: M Client Development Manager: [facility] Height: 72 in BSA: 2.12 m?? BP: 128 / 73 Weight: 197 lbs BMI: 26.7 kg/m?? HR: 63 Location: Inpatient (Portable) Rhythm: Normal Sinus Rhythm Procedure Components: 2D imaging with contrast, Color Doppler, SpectralDoppler Indications: Hypertensive heart disease Technical Quality: Fair, Technically difficult study Contrast: Definity Constrast Dose (ml): 0.3 [facility]#: [id number] Final Conclusion 1. Technically challenging study. 2. Normal left ventricular size and systolic function. Estimatedejection fraction 55 to 60%. No regional wall motion abnormalities. 3. Normal right ventricular size and systolic function. Unable toestimate right ventricular systolic pressure. 4. No hemodynamically significant valve disease. 5. Tiny apical pericardial effusion without hemodynamic significance. 6. Dilated inferior vena cava (of note, patient is intubated). 7. No prior study available for comparison. Estimated EF: 55-60% FINDINGS Left Ventricle Normal left ventricular chamber size. Normal leftventricular wall thickness. Normal left ventricular systolic function. Estimated left ventricular ejection fraction is 55-60%. Noregional wall motion abnormalities. Diastolic Function Findings consistent with normal left ventricularfilling pressure. Right Ventricle Normal right ventricular chamber size. Normal rightventricular systolic function. Right ventricular systolic pressure cannot be estimated due to inability to detect peak tricuspidregurgitation Doppler velocity. Left Atrium Normal left atrial size. Right Atrium Normal right atrial size. Atrial Septum No obvious evidence of inter-atrial shunt by color flowDoppler. Aortic Valve Trileaflet aortic valve. No aortic valve stenosis. No aorticvalve regurgitation. Mitral Valve Normal mitral valve. No mitral valve stenosis. Trivialmitral valve regurgitation. Tricuspid Valve Normal tricuspid valve. Trivial tricuspid valveregurgitation. Pulmonic Valve Pulmonary valve was not well visualized. No pulmonaryvalve regurgitation. Pericardium Tiny pericardial effusion (apical, without hemodynamicsignificance). Aorta Aortic sinus of Valsalva is normal in size (3.9 cm, ZScore =1.8). Ascending aorta was not well visualized. Inferior Vena Cava Dilated inferior vena cava with decreased collapse. MEASUREMENTS (Male / Female) Normal Values 2D MEASUREMENTS AND LV FUNCTION IVS Diastolic Thickness 0.905 cm < 1.1 cm / < 1.0cm LV Diastolic Diameter PLAX 5.71 cm 4.2 - 5.9 / 3.9 -5.3 cm LV Diastolic Diameter Index 2.7 cm/m?? LVPW Diastolic Thickness 0.792 cm < 1.1 cm / < 1.0cm LV Systolic Diameter PLAX 4.45 cm LV Systolic Diameter Index 2.1 cm/m?? LVOT Diameter 2.2 cm LVOT Cardiac Output 4.36 l/min LVOT Cardiac Index 2.03 l/min??m?? LVOT Stroke Volume 69.2 ml Stroke Volume Index 32.3 ml/m?? RV Diastolic Basal Diameter 3.28 cm RV Diastolic Mid Diameter 2.55 cm LV Mass 184 g LV Mass Index 86.3 g/m?? Sinuses of Valsalva Diameter(d) 3.9 cm IVC Diameter Expiration 2.42 cm M MODE TAPSE MM 2.33 cm DIASTOLOGY Mitral E Point Velocity 0.679 m/sec 0.70 - 1.02m/sec Mitral A Point Velocity 0.658 m/sec 0.06 - 1.06m/sec Mitral E to A Ratio 1.03 1.1 - 2.1 MV Deceleration Time 188 msec 167 - 231 msec LV E' Lateral Velocity 0.149 m/sec Mitral E to LV E' Lateral Ratio 4.56 LV E' Septal Velocity 0.11 m/sec Mitral E to LV E' Septal Ratio 6.17 AORTIC VALVE AV Peak Velocity 1.23 m/sec < 2.0 m/sec AV Peak Gradient 6.05 mmHg AV Mean Gradient 3 mmHg AV Velocity Time Integral 22.2 cm LVOT Peak Velocity 1.14 m/sec LVOT Velocity Time Integral 18.2 cm AV Area Cont Eq vti 3.12 cm?? AV Area Cont Eq pk 3.52 cm?? AV Dimensionless Index 0.82 MITRAL VALVE MV Pressure Half Time 55 msec MV Area PHT 4 cm?? TRICUSPID VALVE AND ESTIMATED PRESSURES Right Atrial Pressure 15 mmHg HCM DATA LVOT BEN (r) 5.2 mmHg Aortic Root ZScore: 1.80 Hussein Ruth MD (Electronically Signed) [facility] Accredited Site Final Date: 31 July 2023 13:30 ICD-10 Codes: Cindi Erickson INVESTIGATOR UTILITY BILL COMPLAINTS ECHO ORD * SCAN-CARDIAC STRIP (07/31/2023 11:06 AM CDT) Scanner OTHER * US RENAL AND BLADDER COMPLETE (07/31/2023 7:55 AM CDT) Anatomical Region Laterality Modality Abdomen, AORTA, KIDNEYS Ultrasou nd 07/31/2023 7:55 AM CDT Impressions 07/31/2023 8:30 AM CDT Unremarkable renal ultrasound without hydronephrosis. Narrative 07/31/2023 8:30 AM CDT For Patients: As a result of the Century Cures Act, medical imaging exams and procedure reports are released immediately into your electronic medical record. You may view this report before your referring provider. If you have questions, please contact your health care provider. EXAM: US RENAL AND BLADDER COMPLETE LOCATION: [facility] DATE: 07/31/2023 INDICATION: Renal failure COMPARISON: None. TECHNIQUE: Routine Bilateral Renal and Bladder Ultrasound. FINDINGS: RIGHT KIDNEY: 13.3 cm. Normal without hydronephrosis or masses. LEFT KIDNEY: 13.1 cm. Normal without hydronephrosis or masses. BLADDER: Decompressed with Mccloud catheter in place. Trace bilateral perinephric edema. Procedure Note Hussein Whittington MD - 07/31/2023 For Patients: As a result of the Cures Act, medical imagingexams and procedure reports are released immediately into your electronicmedical record. You may view this report before your referring provider.If you have questions, please contact your health care provider. EXAM: US RENAL AND BLADDER COMPLETE LOCATION: [facility] DATE: 07/31/2023 INDICATION: Renal failure COMPARISON: None. TECHNIQUE: Routine Bilateral Renal and Bladder Ultrasound. FINDINGS: RIGHT KIDNEY: 13.3 cm. Normal without hydronephrosis or masses. LEFT KIDNEY: 13.1 cm. Normal without hydronephrosis or masses. BLADDER: Decompressed with Mccloud catheter in place. Trace bilateral perinephric edema. IMPRESSION: Unremarkable renal ultrasound without hydronephrosis. Mulu VARGAS * CWS PATH REVIEW HEMATOLOGY (07/31/2023 4:49 AM CDT) Blood BLOOD SPECIMEN / Unknown Venipuncture / Unknown 07/31/2023 4:49 AM CDT 07/31/2023 5:00 AM CDT Cindi Erickson NP LABORATORY [facility] SENDOUT INTERNAL ZIP [phone] [place] [address] * (ABNORMAL) CBC WITH AUTO DIFFERENTIAL (07/31/2023 4:49 AM CDT) Only the most recent of2 resultswithin the time period is included. WHITE BLOOD COUNT 14.6(H) 4.5 - 11.0 thou/cu mm 07/31/2023 7:30 AM CDT [facility] RED BLOOD COUNT 4.78 4.30 - 5.90 mil/cu mm 07/31/2023 7:30 AM CDT [facility] HEMOGLOBIN 14.5 13.5 - 17.5 g/dL 07/31/2023 7:30 AM T [facility] HEMATOCRIT 43.7 37.0 - 53.0 % 07/31/2023 7:30 AM T [facility] MCV 91 80 - 100 fL 07/31/2023 7:30 AM T [facility] MCH 30.3 26.0 - 34.0 pg 07/31/2023 7:30 AM T [facility] MCHC 33.2 32.0 - 36.0 g/dL 07/31/2023 7:30 AM T [facility] RDW 13.6 11.5 - 15.5 % 07/31/2023 7:30 AM T [facility] PLATELET COUNT 192 140 - 440 thou/cu mm 07/31/2023 7:30 AM [facility] MPV 10.1 6.5 - 11.0 fL 07/31/2023 7:30 AM T [facility] NRBC 0.0 % 07/31/2023 7:30 AM T [facility] ABS NRBC 0.0 thou /cu mm 07/31/2023 7:30 AM T [facility] Blood BLOOD SPECIMEN / Unknown Venipuncture / Unknown 07/31/2023 4:49 AM CDT 07/31/2023 5:00 AM CDT Cindi Erickson NP HEMATOLOGY [facility] SENDOUT INTERNAL ZIP [address] [address] [place] [address] * RED CELL MORPHOLOGY (07/31/2023 4:49 AM CDT) RBC COMMENT RBC morphology appears normal RBC morphology appears normal, RBC morphology within normal limits for newborns. 07/31/2023 7:30 AM T [facility] Blood BLOOD SPECIMEN / Unknown Venipuncture / Unknown 07/31/2023 4:49 AM CDT 07/31/2023 5:00 AM CDT Cindi Miller Dre INVESTIGATOR UTILITY BILL COMPLAINTS HEMATOLOGY [facility] SENDOUT INTERNAL ZIP [address] [address] [place] [address] * PLATELET ESTIMATE (07/31/2023 4:49 AM CDT) PLATELET ESTIMATE Adequate Adequate, No estimate 07/31/2023 7:30 AM CDT [facility] Blood BLOOD SPECIMEN / Unknown Venipuncture / Unknown 07/31/2023 4:49 AM CDT 07/31/2023 5:00 AM CDT Cindi Miller Dre [facility] Performing Organization Address [facility] Co de Phone Number [facility] SENDOUT INTERNAL ZIP [address] [address] [place] [address] * LEVETIRACETAM (KEPPRA) (07/31/2023 4:49 AM CDT) Pathologist [facility] LEVETIRACETAM (KEPPRA) 34.4 6.0 - 46.0 ug/mL 07/31/2023 10:12 AM CDT [facility] Blood BLOOD SPECIMEN / Unknown Venipuncture / Unknown 07/31/2023 4:49 AM CDT 07/31/2023 5:00 AM CDT Narrative [facility] - 07/31/2023 10:12 AM CDT Reference Range is based on Trough Steady State in patients receiving recommended daily dose. ??The relationship between serum concentrations and toxicity is not known. Bivaracetam (Briviact??) interferes with measurements of levetiracetam (Keppra??) in the ARK Levetiracetam Assay Roxanne DOWNING SEND OUTS Performing Organization Address City/[facility]/ZIP Co de Phone Number [facility] [address] [place] [address], [place] * (ABNORMAL) MANUAL DIFFERENTIAL (07/31/2023 4:49 AM CDT) % NEUTROPHILS 79.0 % 07/31/2023 7:30 AM CDT [facility] % LYMPHOCYTES 9.0 % 07/31/2023 7:30 AM CDT [facility] % MONOCYTES 12.0 % 07/31/2023 7:30 AM CDT [facility] % EOSINOPHILS 0.0 % 07/31/2023 7:30 AM CDT [facility] % BASOPHILS 0.0 % 07/31/2023 7:30 AM CDT [facility] NEUTROPHILS ABSOLUTE 11.5(H) 1.7 - 7.0 thou/cu mm 07/31/2023 7:30 AM CDT [facility] LYMPHOCYTES ABSOLUTE 1.3 0.9 - 2.9 thou/cu mm 07/31/2023 7:30 AM CDT [facility] MONOCYTES ABSOLUTE 1.8(H) <0.9 thou/cu mm 07/31/2023 7:30 AM CDT [facility] EOSINOPHILS ABSOLUTE 0.0 <0.5 thou/cu mm 07/31/2023 7:30 AM T [facility] BASOPHILS ABSOLUTE 0.0 <0.3 thou/cu mm 07/31/2023 7:30 AM CDT [facility] Blood BLOOD SPECIMEN / Unknown Venipuncture / Unknown 07/31/2023 4:49 AM CDT 07/31/2023 5:00 AM CDT Cindi Erickson NP HEMATOLOGY Performing Organization Address City/State/[facility] Co de Phone Number [facility] SENDOUT INTERNAL [facility] [phone] [place] [phone] * TRIGLYCERIDES propofol (07/31/2023 4:49 AM CDT) TRIGLYCERIDES 110 <150 mg/dL 07/31/2023 5:26 AM CDT [facility] PROVIDER ORDERED STATUS RANDOM 07/31/2023 5:26 AM CDT [facility] Blood BLOOD SPECIMEN / Unknown Venipuncture / Unknown 07/31/2023 4:49 AM CDT 07/31/2023 5:00 AM CDT Cindi Erickson NP CHEMISTRY Performing Organization Address [facility]/ZIP Co de Phone Number [facility] SENDOUT INTERNAL ZIP [address] [address] [place] [address] * PHOSPHORUS (07/31/2023 4:49 AM CDT) Only the most recent of3 resultswithin the time period is included. PHOSPHORUS 4.4 2.5 - 4.5 mg/dL 07/31/2023 6:37 AM CDT [facility] Blood BLOOD SPECIMEN / Unknown Venipuncture / Unknown 07/31/2023 4:49 AM CDT 07/31/2023 5:00 AM CDT Mulu Jory BOWSER CHEMISTRY Performing Organization Address [facility] Co de Phone Number [facility] SENDOUT [place] [place] [address] * MAGNESIUM (07/31/2023 4:49 AM CDT) Only the most recent of2 resultswithin the time period is included. MAGNESIUM 2.5 1.6 - 2.6 mg/dL 07/31/2023 5:26 AM CDT [facility] Blood BLOOD SPECIMEN / Unknown Venipuncture / Unknown 07/31/2023 4:49 AM CDT 07/31/2023 5:00 AM CDT Sanchezdestiny Jory BOWSER CHEMISTRY Performing Organization Address [facility] Co de Phone Number [facility] SENDOUT [place]NAL ZIP [address] [place] [address] * (ABNORMAL) CK TOTAL propofol (07/31/2023 4:49 AM CDT) Only the most recent of2 resultswithin the time period is included. CK,TOTAL 413(H) 39 - 308 IU/L 07/31/2023 5:26 AM CDT [facility] Blood BLOOD SPECIMEN / Unknown Venipuncture / Unknown 07/31/2023 4:49 AM CDT 07/31/2023 5:00 AM CDT Cindi Erickson NP CHEMISTRY [facility] SENDOUT [place] [address] [phone] [place] [address] * HEPATIC FUNCTION PANEL (07/31/2023 4:49 AM CDT) Only the most recent of2 resultswithin the time period is included. ALBUMIN 4.3 4.0 - 4.9 g/dL 07/31/2023 6:40 AM CDT [facility] PROTEIN,TOTAL 6.9 6.0 - 8.0 g/dL 07/31/2023 6:40 AM CDT [facility] BILIRUBIN,TOTAL 0.4 0.0 - 1.2 mg/dL 07/31/2023 6:40 AM CDT [facility] BILIRUBIN,DIRECT <0.2 0.0 - 0.3 mg/dL 07/31/2023 6:40 AM CDT [facility] BILIRUBIN,INDIRE CT 07/31/2023 6:40 AM CDT [facility] Comment:Unable to calculate, Direct Bili <0.2 ALK PHOSPHATASE 63 40 - 129 IU/L 07/31/2023 6:40 AM CDT [facility] ALT (SGPT) 17 10 - 50 IU/L 07/31/2023 6:40 AM CDT [facility] AST (SGOT) 42 10 - 50 IU/L 07/31/2023 6:40 AM CDT [facility] Blood BLOOD SPECIMEN / Unknown Venipuncture / Unknown 07/31/2023 4:49 AM CDT 07/31/2023 5:00 AM CDT Mulu VARGAS CHEMISTRY [facility] SENDOUT [place] [address] [address] [place] [address] * (ABNORMAL) BASIC METABOLIC PANEL (07/31/2023 4:49 AM CDT) Only the most recent of2 resultswithin the time period is included. SODIUM 142 136 - 145 mmol/L 07/31/2023 5:26 AM CDT [facility] POTASSIUM 3.9 3.5 - 5.1 mmol/L 07/31/2023 5:26 AM T [facility] CHLORIDE 109(H) 98 - 107 mmol/L 07/31/2023 5:26 AM T [facility] CO2,TOTAL 17(L) 22 - 29 mmol/L 07/31/2023 5:26 AM T [facility] ANION GAP 16 5 - 18 07/31/2023 5:26 AM T [facility] GLUCOSE 89 70 - 99 mg/dL 07/31/2023 5:26 AM T [facility] CALCIUM 9.0 8.6 - 10.0 mg/dL 07/31/2023 5:26 AM [facility] BUN 22(H) 6 - 20 mg/dL 07/31/2023 5:26 AM [facility] CREATININE 1.91(H) 0.70 - 1.20 mg/dL 07/31/2023 5:26 AM [facility] BUN/CREAT RATIO 12 10 - 20 5:26 AM [facility] eGFR 47(L) >90 mL/min/1.7 3m2 07/31/2023 5:26 AM [facility] Comment:As of 2021, eG FR is calculated by the CKD-EPI creatinine equation without race adjustment. ??eGFR can be influenced by muscle mass, exercise, and diet. ??The reported eGFR is an estimation only and is only applicable if the renal function is stable. Blood BLOOD SPECIMEN / Unknown Venipuncture / Unknown 07/31/2023 4:49 AM CDT 07/31/2023 5:00 AM CDT Cindi Erickson NP CHEMISTRY [facility] SENDOUT INTERNAL ZIP [phone] [place] [address] * MR BRAIN W/WO CONTRAST (07/31/2023 4:32 AM CDT) Anatomical Region Laterality Modality BRAIN, HEAD Magnetic Resonan ce 07/31/2023 4:32 AM CDT Impressions 07/31/2023 5:28 AM CDT 1. 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 2. No other abnormal signal or abnormal enhancement within brain parenchyma. 3. Recommend follow-up imaging to determine if this is reversible. These findings were communicated by phone to at 5:22 am at on 07/31/2023. Narrative 07/31/2023 5:28 AM CDT For Patients: As a result of the Cures Act, medical imaging exams and procedure reports are released immediately into your electronic medical record. You may view this report before your referring provider. If you have questions, please contact your health care provider. EXAM: MR HEAD BRAIN WWO LOCATION: [facility] DATE: 07/31/2023 INDICATION: Seizure, new-onset, no history of trauma COMPARISON: 07/30/2023. CONTRAST: GADOTERATE MEGLUMINE 0.5 MMOL/ML IV SOLN 20 ML VIAL: 17mL TECHNIQUE: MRI brain without and with contrast. FINDINGS: On the diffusion-weighted images there is restrictive diffusion involving the right hippocampus. There is no other focus of ischemia or restricted diffusion. There is no discrete mass lesion or midline shift. There is no acute extra-axial fluid collection or acute intraparenchymal hemorrhage. There are appropriate flow voids within the cavernous portions of the internal carotid arteries and the basilar artery. There is slight high signal on the FLAIR and T2-weighted images within the right hippocampus otherwise no other abnormal signal is noted on the FLAIR or T2-weighted images. This signal abnormality within the right hippocampus is most prominent on the diffusion-weighted images. The ventricular system, basal cisterns and the cortical sulci are within normal limits for the patient's age. Following the administration of contrast no abnormal enhancement is visualized. There is no evidence of cerebellar tonsillar ectopia. The corpus callosum and the sella region have appropriate configuration and signal intensity. The orbit regions are unremarkable. There is mild mucosal thickening ethmoid air cells bilaterally and an air-fluid level within the right sphenoid sinus. There is trace fluid within the mastoid air cells bilaterally. Procedure Note Melanie Devine MD - 07/31/2023 For Patients: As a result of the Cures Act, medical imagingexams and procedure reports are released immediately into your electronicmedical record. You may view this report before your referring provider.If you have questions, please contact your health care provider. EXAM: MR HEAD BRAIN WWO LOCATION: [facility] DATE: 07/31/2023 INDICATION: Seizure, new-onset, no history of trauma COMPARISON: 07/30/2023. CONTRAST: GADOTERATE MEGLUMINE 0.5 MMOL/ML IV SOLN 20 ML VIAL: 17mL TECHNIQUE: MRI brain without and with contrast. FINDINGS: On the diffusion-weighted images there is restrictive diffusioninvolving the right hippocampus. There is no other focus of ischemia orrestricted diffusion. There is no discrete mass lesion or midline shift.There is no acute extra-axial fluid collection or acute intraparenchymalhemorrhage. There are appropriate flow voids within the cavernous portionsof the internal carotid arteries and the basilar artery. There is slighthigh signal on the FLAIR and T2-weighted images within the righthippocampus otherwise no other abnormal signal is noted on the FLAIR orT2-weighted images. This signal abnormality within the right hippocampusis most prominent on the diffusion-weighted images. The ventricularsystem, basal cisterns and the cortical sulci are within normal limits forthe patient's age. Following the administration of contrast no abnormalenhancement is visualized. There is no evidence of cerebellar tonsillar ectopia. The corpus callosumand the sella region have appropriate configuration and signal intensity.The orbit regions are unremarkable. There is mild mucosal thickeningethmoid air cells bilaterally and an air-fluid level within the rightsphenoid sinus. There is trace fluid within the mastoid air cellsbilaterally. IMPRESSION: 1. 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 2. No other abnormal signal or abnormal enhancement within brainparenchyma. 3. Recommend follow-up imaging to determine if this is reversible. These findings were communicated by phone to at 5:22 am at on07/31/2023. Cindi Erickson NP MR * XR SKULL EQUAL OR LESS 3 VIEWS (07/31/2023 3:23 AM CDT) Anatomical Region Laterality Modality SKULL Computed Radiogr aphy 07/31/2023 3:23 AM CDT Impressions 07/31/2023 3:28 AM CDT Multiple EEG leads scalp. Metallic ornamentation/nose ring in the left nare. No metallic foreign body in either orbit. Narrative 07/31/2023 3:28 AM CDT For Patients: As a result of the Cures Act, medical imaging exams and procedure reports are released immediately into your electronic medical record. You may view this report before your referring provider. If you have questions, please contact your health care provider. EXAM: XR SKULL EQUAL OR LESS 3 VIEWS LOCATION: [facility] DATE: 07/31/2023 INDICATION: Metallic screening for MRI COMPARISON: None. Procedure Note Carter Covarrubias MD - 07/31/2023 For Patients: As a result of the Cures Act, medical imagingexams and procedure reports are released immediately into your electronicmedical record. You may view this report before your referring provider.If you have questions, please contact your health care provider. EXAM: XR SKULL EQUAL OR LESS 3 VIEWS LOCATION: [facility] DATE: 07/31/2023 INDICATION: Metallic screening for MRI COMPARISON: None. IMPRESSION: Multiple EEG leads scalp. Metallic ornamentation/nose ring in the leftnare. No metallic foreign body in either orbit. Cindi Erickson NP GENERAL IMAGING * (ABNORMAL) COMPREHENSIVE URINE DRUG SCREEN (07/30/2023 7:59 PM CDT) ACETAMINOPHEN URINE NEG <=10 mcg/mL 07/31/2023 3:00 AM [facility] AMPHETAMINE URINE NEG <=500 ng/mL 07/31/2023 3:00 AM T [facility] BARBITURATE URINE NEG <=200 ng/mL 07/31/2023 3:00 AM [facility] BENZODIAZEPINE URINE POS(A) <=100 ng/mL 07/31/2023 3:00 AM [facility] BUPRENORPHRINE URINE NEG <=5 ng/mL 07/31/2023 3:00 AM [facility] COCAINE METAB URINE NEG <=300 ng/mL 07/31/2023 3:00 AM T [facility] ETHANOL URINE NEG <=10 mg/dL 07/31/2023 3:00 AM CDT [facility] FENTANYL URINE POS(A) <=4 ng/mL 07/31/2023 3:00 AM CDT [facility] METHADONE URINE NEG <=300 ng/mL 07/31/2023 3:00 AM CDT [facility] OPIATES URINE NEG <=300 ng/mL 07/31/2023 3:00 AM T [facility] OXYCODONE URINE NEG <=100 ng/mL 07/31/2023 3:00 AM CDT [facility] PCP URINE NEG <=25 ng/mL 07/31/2023 3:00 AM T [facility] SALICYLATE URINE NEG <=10 mg/dL 07/31/2023 3:00 AM CDT [facility] THC 50 URINE POS(A) <=50 ng/mL 07/31/2023 3:00 AM T [facility] MASS SPECTROMETRY URINE See Below 07/31/2023 3:00 AM T [facility] Comment:Fentanyl, Levetirace jamison, Lidocaine, Midazolam, Propofol, Sertraline and Trazodone present. Urine URINE SPECIMEN / Unknown Non-Blood / Unknown 07/30/2023 7:59 PM CDT 07/30/2023 8:10 PM CDT [facility] - 07/31/2023 3:00 AM CDT Release to patient->Immediate Cindi Erickson NP URINE [facility] [address] [facility] [address] [place] [address], * ETHYLENE GLYCOL (07/30/2023 6:18 PM CDT) ETHYLENE GLYCOL Negative Negative mg/dL 07/30/2023 9:57 PM CDT [facility] PROPYLENE GLYCOL Negative Negative mg/dL 07/30/2023 9:57 PM CDT [facility] Blood BLOOD SPECIMEN / Unknown Venipuncture / Unknown 07/30/2023 6:18 PM CDT 07/30/2023 6:35 PM CDT Narrative [facility] - 07/30/2023 9:57 PM CDT Release to patient->Immediate Mulu VARGAS SEND OUTS [facility] [address] [place] [address], * AMMONIA (07/30/2023 6:18 PM CDT) AMMONIA 44 11 - 51 umol/L 07/30/2023 7:03 PM CDT [facility] Blood BLOOD SPECIMEN / Unknown Venipuncture / Unknown 07/30/2023 6:18 PM CDT 07/30/2023 6:42 PM CDT Narrative [facility] - 07/30/2023 7:03 PM CDT 1. ??Sulfasalazine and its metabolite Sulfapyridine at therapeutic concentrations may lead to falsely low results. 2. ??Temozolomide and its metabolite MTIC may lead to falsely elevated results, and its metabolite AIC may lead to falsely low results. Mulu VARGAS CHEMISTRY [facility] SENDOUT INTERNAL ZIP [address] [place] [address] * (ABNORMAL) BLOOD GAS,VENOUS (07/30/2023 4:45 PM CDT) PH, VENOUS 7.38 7.32 - 7.43 07/30/2023 4:56 PM CDT [facility] PCO2, VENOUS 40(L) 41 - 51 mmHg 07/30/2023 4:56 PM CDT [facility] PO2, VENOUS 43(H) 35 - 40 mmHg 07/30/2023 4:56 PM CDT [facility] HCO3,VENOUS 24 22 - 29 mmol/L 07/30/2023 4:56 PM CDT [facility] BASE EXCESS, VENOUS, POCT -1.3 -2.0 - 3.0 07/30/2023 4:56 PM CDT [facility] O2 SATURATION, VENOUS 73 70 - 75 % 07/30/2023 4:56 PM CDT [facility] PATIENT TEMPERATURE 37.0 Degrees C 07/30/2023 4:56 PM CDT [facility] Blood VENOUS BLOOD SPECIMEN / Unknown Venipuncture / Unknown 07/30/2023 4:45 PM CDT 07/30/2023 4:50 PM CDT Cindi Erickson INVESTIGATOR UTILITY BILL COMPLAINTS CHEMISTRY [facility] SENDOUT INTERNAL ZIP [address] [place] [address] * ETHANOL SERUM OR PLASMA (07/30/2023 3:49 PM CDT) Pathologist [facility] ETHANOL <0.010 <0.010 g/dL 07/30/2023 4:55 PM CDT [facility] Blood BLOOD SPECIMEN / Unknown Capillary / Unknown 07/30/2023 3:49 PM CDT 07/30/2023 4:19 PM CDT Cindi Erickson NP CHEMISTRY [facility] SENDOUT INTERNAL ZIP [address] [place] [address] * Hemoglobin A1C (07/30/2023 3:49 PM CDT) HEMOGLOBIN A1C MONITORING (POCT) 5.7 <=6.4 % 07/30/2023 4:38 PM CDT [facility] Blood BLOOD SPECIMEN / Unknown Capillary / Unknown 07/30/2023 3:49 PM CDT 07/30/2023 4:19 PM CDT Narrative [facility] - 07/30/2023 4:38 PM CDT ? (<=6.9%) ? Indicates good control ? (7.0% to 7.9%) ? Indicates fair control ? (>=8.0%) ? Indicates poor control ?? NOTE: ??These thresholds are guidelines and ?individual targets may vary. Falsely low levels may be seen with: Recent Transfusion, Recent Significant Blood Loss, Hemolytic Diseases, or Falsely elevated levels may be seen with: Untreated Anemias, Splenectomy ? Cindi Erickson NP CHEMISTRY [facility] SENDOUT INTERNAL ZIP [address] [address] [place] [address] * XR ABDOMEN 1 VIEW PORTABLE (07/30/2023 3:22 PM CDT) Anatomical Region Laterality Modality Abdomen Computed Radiogr aphy 07/30/2023 3:22 PM CDT Impressions 07/30/2023 3:46 PM CDT NG tube has been placed with tip in the stomach and sidehole in the distal esophagus. Consider advancing an additional 10 cm for more secure intragastric positioning. Narrative 07/30/2023 3:46 PM CDT For Patients: As a result of the Cures Act, medical imaging exams and procedure reports are released immediately into your electronic medical record. You may view this report before your referring provider. If you have questions, please contact your health care provider. EXAM: XR ABDOMEN 1 VIEW PORTABLE LOCATION: [facility] DATE: 07/30/2023 INDICATION: Tube placement COMPARISON: None. Procedure Note Loyd Robison MD - 07/30/2023 For Patients: As a result of the Cures Act, medical imagingexams and procedure reports are released immediately into your electronicmedical record. You may view this report before your referring provider.If you have questions, please contact your health care provider. EXAM: XR ABDOMEN 1 VIEW PORTABLE LOCATION: [facility] DATE: 07/30/2023 INDICATION: Tube placement COMPARISON: None. IMPRESSION: NG tube has been placed with tip in the stomach and sidehole in the distalesophagus. Consider advancing an additional 10 cm for more secureintragastric positioning. Cindi Erickson NP GENERAL IMAGING * (ABNORMAL) LIPID PANEL W REFLEX MEASURED LDL (06/29/2023 8:35 AM CDT) CHOLESTEROL,TOTAL 270(H) 100 - 199 mg/dL 06/29/2023 5:29 PM CDT [facility] Comment: Cholesterol, Total Reference Ranges Desirable <200 mg/dL Borderline 200-239 mg/dL High >=240 mg/dL TRIGLYCERIDES 52 <150 mg/dL 06/29/2023 5:29 PM CDT [facility] HDL CHOLESTEROL 60 >40 mg/dL 5:29 PM CDT [facility] NON-HDL CHOLESTEROL 210(H) <145 mg/dl 06/29/2023 5:29 PM CDT [facility] CHOL/HDL RATIO 4.50(H) <4.50 06/29/2023 5:29 PM CDT [facility] LDL CHOLESTEROL 200(H) <=130 mg/dL 06/29/2023 5:29 PM CDT [facility] VLDL CHOLESTEROL 10 <=30 mg/dL 06/29/2023 5:29 PM CDT [facility] PROVIDER ORDERED STATUS RANDOM 06/29/2023 5:29 PM CDT [facility] Blood BLOOD SPECIMEN / Unknown Venipuncture / Unknown 06/29/2023 8:35 AM CDT 06/29/2023 8:48 AM CDT Imelda Denis MD CHEMISTRY [facility] [address] [place] [id number] * ANTI HCV (10/25/2021 8:37 AM CDT) Pathologist [facility] HEPATITIS C ANTIBODY Non-React chung Non-React chung 10/25/2021 7:48 PM CDT [facility] Comment:Antibodies to HCV no t detected; does not exclude the possibility of exposure to HCV. Blood BLOOD SPECIMEN / Unknown Venipuncture / Unknown 10/25/2021 8:37 AM CDT 10/25/2021 8:39 AM CDT Siobhan Gray DO SEND OUTS [facility] [address] [place] [address], [place] * ANTI HIV 1/2 (03/29/2015 5:28 PM SENIOR CHEMICAL ENGINEER) HIV-1/HIV-2 ANTIBODY Non-Reacti ve Non-Reacti ve 03/30/2015 1:55 PM SENIOR CHEMICAL ENGINEER [facility] Blood specimen (specimen) BLOOD SPECIMEN / Unknown Venipuncture / Unknown 03/29/2015 5:28 PM SENIOR CHEMICAL ENGINEER 03/29/2015 5:28 PM SENIOR CHEMICAL ENGINEER Narrative [facility] - 03/30/2015 1:55 PM SENIOR CHEMICAL ENGINEER HIV-1 p24 and HIV-1/HIV-2 Ab not detected Reuben Mcallister DO SEND OUTS [facility] [address] [place] [address], [place] from Last 3 Months or Most Recently Relevant to Health Maintenance Advance Directives * Full Code (Latest Code Status on File) Date Activated Date Inactivated Comments 07/30/2023 5:15 PM Question Answer Comments Code Status Discussion: Reviewed Preferences * Full Code Date Activated Date Inactivated Comments 08/07/2021 4:07 PM 08/10/2021 5:18 PM Question Answer Comments Code Status Discussion: Reviewed Preferences * Full Code Date Activated Date Inactivated Comments 08/06/2021 5:29 PM 08/07/2021 4:07 PM Question Answer Comments Code Status Discussion: Unable to Assess Preferences, Provider to review later Care Teams Well Service Derrick Worker Relationship Specialty Start Date End Date Karina Adam PCP - General 07/30/23
--- OUTSIDE RECORDS SUMMARY | 2023-07-31 23:10 | XMS_ITS | Referral Summary ---
Author Organization [facility] Address [address] [place] [address] Care Team Providers Care Neckties Painter Name Role Phone Elsewhere, Pcp Primary Care Provider Unavailabl e Source Comments Patient records contain information from all sites at [facility]. For routine questions regarding patient records, call [phone] during business hours, M-F 8:00 AM - 5:00 PM Central Time. Record requests for emergency care only can be directed to [phone] at any time.[facility] Allergies No known active allergies Medications Medication [...] of Treatment Not on file Care Teams Neckties Painter Relationship Specialty Start Date End Date Elsewhere, Pcp PCP - General Internal Medicine 06/21/18
--- OUTSIDE RECORDS SUMMARY | 2023-07-31 23:10 | XMS_ITS ---
Author Organization [facility] Address [address] [place] [address] Care Team Providers Care Librarian Head Name Role Phone Unavailable Unavailable Unavailable Surgery Details Not on file Complications Check Surgery Details section. Procedure Estimated Blood Loss Check Surgery Details section. Procedure Findings Check Surgery Details section. Procedure Specimens Taken Check Surgery Details section.
== END 2023-07-30 11:03 | disposition home or self-care (01) ==
LOC: AMB 07-31 23:09
PROVIDERS: Visit Provider Family Medicine
DX: R56.9 Unspecified convulsions (principal)
CPT/HCPCS: A0425; A0427

== ENCOUNTER 2023-07-30 11:36 | Emergency (ER) | payer OTHER, SELFPAY ==
[2023-07-30] VITALS (22 sets, daily range): BP systolic 107–203; BP diastolic 45–110; PULSE 80–117; RESP 24; O2SAT 85–100
--- NOTE | 2023-07-30 | CRLHL7_ITS ---
For Patients: As a result of the Century Cures Act, medical imaging exams and procedure reports are released immediately into your electronic medical record. You may view this report before your referring provider. If you have questions, please contact your health care provider. INDICATION: Post intubation placement. TECHNIQUE: Chest 1 views. COMPARISON: None. FINDINGS: Cardiovascular and mediastinum: Heart size and vasculature are normal in caliber and appearance. Endotracheal tube with tip approximately 7.5 centimeters from the caleb. Lungs and pleural spaces: Lungs are clear. No sign of infiltrate or mass. No sign of pleural effusion. No pneumothorax. Bones and soft tissues: No significant findings. IMPRESSION: Endotracheal tube with tip approximately 7.5 centimeters from the caleb. Consider adjustment. Dictated by Jj Dubose MD @ 07/30/2023 12:17:49 PM (Electronically Signed)
[2023-07-30] MEDS: LORazepam 2 MG/ML inj IVP (11:40)
[2023-07-30] MEDS: propofoL 1,000 MG/100 ML ML 75 MG IVPB (11:42)
[2023-07-30] MEDS: PROPOFOL 10 MG/ML INJ 150 MG IVP (11:42)
--- NOTE | 2023-07-30 11:48 | CRLHL7_ITS ---
For Patients: As a result of the Cures Act, medical imaging exams and procedure reports are released immediately into your electronic medical record. You may view this report before your referring provider. If you have questions, please contact your health care provider. INDICATION: Fall, seizure TECHNIQUE: CT cervical spine without contrast. COMPARISON: None FINDINGS: Vertebrae: No evidence of acute fracture. Ossification of the spinous process of C7 consistent with an old fracture or congenital nonunion. Discs and facet joints: Disc spaces and facets are within normal limits. Extraspinal findings: Enteric tube and endotracheal tube partially included on the exam. IMPRESSION: No evidence of acute cervical spine fracture. 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 Please note that all CT scans at this facility use dose modulation, iterative reconstruction, and/or weight-based dosing when appropriate to reduce radiation dose to as low as reasonably achievable. Dictated by Josh Garay MD @ 07/30/2023 12:42:16 PM (Electronically Signed)
--- NOTE | 2023-07-30 11:48 | CRLHL7_ITS ---
For Patients: As a result of the Century Cures Act, medical imaging exams and procedure reports are released immediately into your electronic medical record. You may view this report before your referring provider. If you have questions, please contact your health care provider. INDICATION: Seizure, fall TECHNIQUE: CT head without contrast. COMPARISON: None. FINDINGS: CSF spaces: Within normal limits for age. Brain parenchyma: The temple-white differentiation is normal. No sign of mass, hemorrhage, or midline shift. Skull base and calvarium: Mild mucosal thickening paranasal sinuses. Nasogastric tube partially included in the examination. The visualized orbits are grossly unremarkable. No skull fractures. IMPRESSION: Unremarkable noncontrast head CT. Please note that all CT scans at this facility use dose modulation, iterative reconstruction, and/or weight-based dosing when appropriate to reduce radiation dose to as low as reasonably achievable. Dictated by Josh Garay MD @ 07/30/2023 12:35:28 PM (Electronically Signed)
[2023-07-30] MEDS: MIDAZOLAM HCL 1 MG/ML inj 2 MG IVP ×3 (11:55→12:48)
[2023-07-30 11:57] LABS: HCO3 VBG 14 mmol/L (21-28); PCO2 VBG 74 mmHG (40-50)
[2023-07-30 12:00] LABS: Basophils Percent Auto 0.3 % (0.0-3.0); Eosinophils Percent Auto 0.4 % (0.0-7.0); Hematocrit 51.2 % (37.0-53.0); Hemoglobin* 15.8 gm/dL (13.5-17.5); Immature Granulocytes Pct Auto 0.9 %; Mean Corpuscular HGB Conc 31 gm/dL (32-36); Mean Corpuscular Hemoglobin 31 pg (26-34); Mean Corpuscular Volume 99 fL (80-100); Monocytes Percent Auto 5.3 % (0.0-11.0); Neutrophils Percent Auto 73.1 % (42.0-72.0); Platelet Count* 308 K/uL (140-440); RDW Coefficient of Variation % 13.2 % (11.5-15.5); Red Blood Count 5.15 m/uL (4.30-5.90); White Blood Count* 18.64 K/uL (4.50-11.00)
[2023-07-30 12:04] LABS: Slide Review Reflex No
--- NOTE | 2023-07-30 12:08 | PM.ANBPRCMDA ---
PFSH PFSH Medical History Depression ?F32.A - Depression, unspecified (ICD-10) History of back problems Family History Mother Thyroid cancer Maternal Grandmother Throat cancer Lung cancer Social History Smoking Status: Former smoker What tobacco products do you use: cigarettes Smoking quit date/years: <= 15 years ago Do you use any of these nicotine containing products: None Second hand tobacco smoke exposure: No service: No Meds Home Medications and Allergies Home Medications ?Medication ?Instructions ?Recorded ?Confirmed ?Type trazodone 50 mg tablet 50 mg PO QPM 10/26/22 07/22/23 History atorvastatin 20 mg tablet 20 mg PO DAILY 07/22/23 07/22/23 History sertraline 25 mg tablet 25 mg PO DAILY 07/22/23 07/22/23 History sertraline 50 mg tablet 50 mg PO DAILY 07/22/23 07/22/23 History Allergies Allergy/AdvReac Type Severity Reaction Status Date / Time No Known Allergies Allergy Verified 07/22/23 11:19 Results Labs Labs: Laboratory Results - last 24 hr 07/30/23 11:40 WBC 18.64 H RBC 5.15 Hgb 15.8 Hct 51.2 MCV 99 MCH 31 MCHC 31 L RDW Coeff of Dorie 13.2 Plt Count 308 Neut % (Auto) 73.1 H Lymph % (Auto) 20.0 [place] % (Auto) 5.3 Eos % (Auto) 0.4 Baso % (Auto) 0.3 Neut # (Auto) 13.60 H Lymph # (Auto) 3.70 H [place] # (Auto) 1.00 H Eos # (Auto) 0.10 Baso # (Auto) 0.10 Abs Immat Gran (auto) 0.20 Imm/Tot Granulo (auto) 0.9 VBG pH 6.870 L* VBG pCO2 74 H* VBG pO2 53.0 H VBG HCO3 14 L Lactate 16.0 H* Anesthesia Procedures - MDA Airway Patient Location: ED Urgency: emergent Start Time: 11:42 Stop Time: 11:50 Start Date: 07/30/23 Stop Date: 07/30/23 Anesthesiologist: Hari TRACK MACHINE OPERATOR REPAIRER: Bruno Performed by: anesthesiologist Preanesthetic Checklist: IV checked Difficult Airway: No Indications for Airway Management: airway protection and respiratory failure Spontaneous Ventilation: present Sedation Level: deep Preoxygenated: Yes Patient Position: other (supine) Mask Difficulty Assessment: 1 - vent by mask Final Airway Details: 8.0 ETT at 22 cm. CXR showed tube well above the caleb and tube was advanced to 24 cm. Final Airway Type: endotracheal airway Number of Attempts at Approach: 1 Dentition Unchanged: Yes
[2023-07-30 12:10] LABS: INR 1.05 (0.91-1.10); Partial Thromboplastin Time* 27 Seconds (23-33); Prothrombin Time 14.4 Seconds
--- OUTSIDE RECORDS SUMMARY | 2023-07-30 12:10 | XMS_ITS ---
Author Organization [facility] Address [address] [place] [address] Care Team Providers Care Security Delivery Specialist Name Role Phone Unavailable Unavailable Unavailable Surgery Details Not on file Complications Check Surgery Details section. Procedure Estimated Blood Loss Check Surgery Details section. Procedure Findings Check Surgery Details section. Procedure Specimens Taken Check Surgery Details section.
--- OUTSIDE RECORDS SUMMARY | 2023-07-30 12:10 | XMS_ITS | Clinical Summary ---
Author Organization [facility] Address [address] [place] [address] Care Team Providers Care Stockholder Name Role Phone Elsewhere, Pcp Primary Care Provider Unavailabl e Source Comments Patient records contain information from all sites at [facility]. For routine questions regarding patient records, call [phone] during business hours, M-F 8:00 AM - 5:00 PM Central Time. Record requests for emergency care only can be directed to [phone] at any time.[facility] Allergies No known active allergies Medications Medication Sig Dispensed Refills Start Date End Date Status triamcinolone (KENALOG) 0.1 % ointmentIndications: Dermatitis Contact Apply sparingly 2 (two) times a day as needed to legs and feet for irritation or rash. 15 g 10/04/2018 Active Active Problems No known active problems Immunizations Name Administration Dates Next Due HepB Pediatric/Adolescent 04/14/2002 MMR 04/14/2002 PPD Test 04/04/2019,03/11/2018 Td (Adult), adsorbed 04/14/2002 Tdap 04/22/2012 influenza vaccine quad (FLUZ ONE/FLUARIX) (6 months and older)(PF) 04/04/2019 Social History Tobacco Use Types Packs/Day Years Used Date Smoking Tobacco: Never Smokeless Tobacco: Never Alcohol Use Standard Drinks/Week Comments Not Currently 0 (1 standard drink = 0.6 oz pur e alcohol) PHQ-2 Answer Date Recorded PHQ-2 Score 0 10/01/2018 Nutrition Answer Date Recorded Nutrition: EVOO Fat Source Unknown 04/16 Nutrition: Servings of Fruits/Vegetables per Day Not on file 04/16/2020 Dental Answer Date Recorded Dental: Regular Dentist Unknown 04/17/19 Sex and Gender Information Value Date Recorded Sex Assigned at Male 06/21/2018 8:31 AM CDT Gender Identity Not on file Sexual Orientation Not on file Last Filed Vital Signs Vital Sign Reading Time Taken Comments Blood Pressure 132/78 10/04/2018 1:17 PM CDT Pulse 76 10/04/2018 1:17 PM CDT Temperature 37 ??C (98.6 ??F) 10/01/2018 10:56 AM CDT Respiratory Rate 18 06/21/2018 8:40 AM CDT Oxygen Saturation 100% 06/21/2018 8:40 AM CDT Inhaled Oxygen Concentration - - Weight 110 kg (243 lb 2.7 oz) 10/04/2018 1:17 PM CDT Height - - Body Mass Index - - Plan of Treatment Health Maintenance Due Date Last Done Comments HIV Screening 1989 Hepatitis C Screening 1990 Hepatitis B Vaccines (2 of 3 - 3-dose series) 05/12/2002 04/14/2002 COVID-19 Vaccine (3 - 2022-2 4 season) 2022 03/23/2021, 03/02/2021 Influenza Vaccine (#1) 2022 2, 11/21/2019, 04/04/2019 Depression Screening (Annual PHQ-2) 02/12/2023 DTaP,Tdap,and Td Vaccines (4 - Td or Tdap) 11/20/2029 11/21/2019, 04/22/2012, 04/14/2002 HPV Vaccines Aged Out No longer eligi ble based on patient's age to complete this topic Pneumococcal vaccine (0-64 years) Aged Out No longer eligible b ased on patient's age to complete this topic Care Teams Stockholder Relationship Specialty Start Date End Date Elsewhere, Pcp PCP - General Internal Medicine 06/21/18
--- OUTSIDE RECORDS SUMMARY | 2023-07-30 12:10 | XMS_ITS | Referral Summary ---
Author Organization [facility] Address [address] [place] [address] Care Team Providers Care Anesthesiology Crna Name Role Phone Elsewhere, Pcp Primary Care Provider Unavailabl e Source Comments Patient records contain information from all sites at [facility]. For routine questions regarding patient records, call [phone] during business hours, M-F 8:00 AM - 5:00 PM Central Time. Record requests for emergency care only can be directed to [phone] at any time.[facility] Allergies No known active allergies Medications Medication [...] Mass Index - - Plan of Treatment Not on file Care Teams Anesthesiology Crna Relationship Specialty Start Date End Date Elsewhere, Pcp PCP - General Internal Medicine 06/21/18
--- OUTSIDE RECORDS SUMMARY | 2023-07-30 12:11 | XMS_ITS | Clinical Summary ---
Author Organization [facility] [facility] Address [place], [place] [address] Care Team Providers Care Law Firm Partner Name Role Phone Pcp, No Primary Care Provider Unavailabl e Allergies No known active allergies Medications Medication Sig Dispensed Refills Start Date End Date Status traZODone (DESYREL) 50 mg tabletIndications:Major depressive disorder, recurrent, severe without psychotic features (HC) Take 1 Tablet (50 mg) by mouth at bedtime if needed for Sleep. 90 Tablet 3 4 Active durable medical equipment (DME)Indications:Carpal tunnel syndrome on both sides Wrist brace rt and lft 4 Active atorvastatin (LIPITOR) 20 mg tabletIndications:Abdirahman l hypercholesterolemia Take 1 Tablet (20 mg) by mouth at bedtime. 100 Tablet 3 4 Active sertraline (ZOLOFT) 25 mg tabletIndications:Alcohol use disorder, severe, in early remission (HC),Borderline personality disorder (HC),Generalized anxiety disorder,Major depressive disorder, recurrent, severe without psychotic features (HC),Persistent depressive disorder,Posttraumatic stress disorder Take 1 Tablet (25 mg) by mouth once daily. In addition to a 50 mg tablet for a total of 75 mg once daily 30 Tablet 2 4 Active sertraline (ZOLOFT) 50 mg tabletIndications:General ized anxiety disorder,Major depressive disorder, recurrent, severe without psychotic features (HC),Persistent depressive disorder,Posttraumatic stress disorder Take 1 Tablet (50 mg) by mouth once daily. 30 Tablet 2 4 Active ibuprofen (ADVIL; MOTRIN) 600 mg tabletIndications:Acute pain of right shoulder Take 1 Tablet (600 mg) by mouth three times daily with meals. Maximum of 3200 mg in 24 hours. 42 Tablet 1 4 Active omeprazole (PRILOSEC) 40 mg Delayed-Release capsuleIndications:Gastri c reflux Take 1 Capsule (40 mg) by mouth once daily before a meal. 14 Capsule 4 Active sertraline (ZOLOFT) 100 mg tabletIndications:Borderl ine personality disorder (HC),Generalized anxiety disorder,Major depressive disorder, recurrent, severe without psychotic features (HC),Persistent depressive disorder,Posttraumatic stress disorder,Alcohol use disorder, severe, in early remission (HC) Take 1 Tablet (100 mg) by mouth once daily. 90 Tablet 4 07/19/19 24 Discontinu ed(*Medica tion adjustment ) Active Problems Problem Noted Date Diagnosed Date Continuous cannabis use 07/19/2023 Mixed hyperlipidemia 10/26/2021 Suicidal ideation 08/07/2021 Borderline personality disorder 07/14/2021 Persistent depressive disorder 07/08/2021 Posttraumatic stress disorder 07/08/2021 Alcohol use disorder, severe , in sustained remission since 09/202107/08/2021 Major depressive disorder, r ecurrent, severe without psychotic features 05/30/2021 Generalized anxiety disorder 05/30/2021 Overweight 04/26/2016 Resolved Problems Problem Noted Date Diagnosed Date Resolved Date Obesity (BMI 35.0-39.9 without comorbidity) 03/29/2015 04/26/2016 Encounters Date Type Department Care Team Description 07/30/2023 Hospital Encounter [address] [place] [address] s, U Hospitalist [facility] 07/27/2023 10:10 AM CDT Office Visit [facility] [address] [place] [address] Mike Perdue MD [facility]; Shoulder Injury (Stepped off equipment, as falling, over extended shoulder; right shoulder ); Ankle Injury; Follow Up (Seen at [facility] the day of injury on 07/22/23; Seen by Dr. Brian for a follow up; Work Comp wants patient to continue to be seen through [facility] ) 07/27/2023 Travel 07/23/2023 7:30 AM CDT Office Visit [address] [phone] Krunal Brian MD Follow Up (left ankle and right shoulder injury) 07/23/2023 Travel 07/22/2023 12:55 PM CDT Office Visit [facility] [address] [place] [phone] Fall 07/22/2023 Travel 07/19/2023 2:00 PM CDT Office Visit [facility] [address] [place] [address] Preston Yee MD Follow Up; Medication Management (feeling, I'm doing well, it's my day off) 07/19/2023 Telephone [facility] [address] [place] [address] Preston Yee MD Form (release of information form) 07/19/2023 Travel 06/29/2023 7:50 AM CDT Office Visit [facility] [address] [place] [address] Imelda Denis MD Numbness (both hands, couple months, painful numbness, thumb middle and ring finger primarily) 06/29/2023 Travel 06/25/2023 Telephone [facility] [address] [place] [address] Preston Yee MD Follow Up 05/30/2023 Telephone [facility] [address] [place] [address] Preston Yee MD 05/30/2023 Telephone [facility] [address] [place] [address] Preston Yee MD Appointment (Appt on 06/06, N/V) 05/22/2023 2:00 PM CDT Office Visit [facility] [address] [place] [address] Preston Yee MD Medication Management (Things are so so) 05/22/2023 Travel 05/18/2023 8:30 AM CDT Telemedicine [facility] [address] [place] [address] Preston Yee MD Error-please disregard; Medication Management (feeling, pretty good, really good) 05/18/2023 Travel 05/14/2023 Refill [facility] [address] [place] [address] Preston Yee MD Refill Request (Trazodone) 05/10/2023 Refill [facility] [address] [place] [address] Preston Yee MD Refill Request (Trazodone) 05/08/2023 1:30 PM CDT Office Visit [facility] [address] [place] [address] Bárbara Manning, Vomiting (1 day); Nausea 05/08/2023 Nurse Triage [facility] [address] [place] [address] Bárbara Manning, Vomiting (Vomitting started this am at 2am dry heaves later) 05/08/2023 Travel from Last 3 Months Immunizations Name Administration Dates Next Due COVID-19 vaccine (Sulmaq NTech 30mcg/0.3mL) 12YO+ JESSICA-SUCROSE PF, MDV 03/23/2021,03/02/2021 Hepatitis B (Peds) 04/14/2002 Influenza Virus, Unspecified 04/04/2019 Influenza, IIV4 03/02/2021,11/21/2019 MMR 04/14/2002 Pneumococcal Conj 20-valent (Prevnar 20) 024 Td (Age >=7 Years) 04/14/2002 Tdap 11/21/2019,04/22/2012 Tuberculin (PPD) 04/04/2019,03/11/2018 Family History Medical History Relation Name Comments Alcoholism Father Depression Father Drug Abuse Father Good Health Half-Brother Cancer Maternal Grandmother Throat Allergies Mother Cancer Mother Thyroid Depression Mother Drug Abuse Mother Thyroid Disease Mother Heart Disease Paternal Grandfather Heart Disease Paternal Grandmother Relation Name Status Comments Brother Alive Father Alive Half-Brother Alive Maternal Grandmother Mother Alive Paternal Grandfather Paternal Grandmother Social History Tobacco Use Types Packs/Day Years Used Date Smoking Tobacco: Former Cigarettes Q uit: 12/28/2014 Passive Smoke Exposure: Past Smokeless Tobacco: Never Tobacco Cessation:Counseling Given: Not Answered Alcohol Use Standard Drinks/Week Comments Not Currently 0 (1 standard drink = 0.6 oz pur e alcohol) 09/2021 PHQ-2 Answer Date Recorded PHQ-2 TOTAL SCORE 2 07/19/2023 Social Connections Answer Date Recorded Frequency of Communication with Friends and Fami ly 0 06/29/2023 Alcohol Use Answer Date Recorded How often do you have a drink containing alcohol ? 1 05/22/2023 How many drinks containing a lcohol do you have on a typical day when you are drinking? 0 05/22/2023 How often do you have five or more drinks on one occasion? 0 05/22/2023 Financial Resource Strain Answer Date R ecorded Difficulty of Paying Living Expenses 3 06/29/2023 Difficulty of Paying Living Expenses Not on file 06/29/2023 Food Insecurity Answer Date Recorded Worried About Running Out of Food in the Last Ye ar 1 06/29/2023 Transportation Needs Answer Date Record ed Lack of Transportation (Medical) 1 06/29/2023 Housing Stability Answer Date Recorded Unable to Pay for Housing in the Last Year 1 06/29/2023 Education Answer Date Recorded What is the highest level of school you have completed or the highest degree you have received? GED or equivalent Sex and Gender Information Value Date Recorded Sex Assigned at Male 11/18/2019 8:29 PM CDT Gender Identity Male 11/18/2019 8:29 PM CDT Sexual Orientation Bisexual 11/18/2019 8: 29 PM CDT Obstetrics History Last Filed Vital Signs Vital Sign Reading Time Taken Comments Blood Pressure 126/78 07/27/2023 10:10 AM CDT Pulse 73 07/27/2023 10:10 AM CDT Temperature 36.6 ??C (97.8 ??F) 07/22/2023 1:21 PM CD T Respiratory Rate 16 07/22/2023 1:21 PM CDT Oxygen Saturation 99% 07/27/2023 10:10 AM CDT Inhaled Oxygen Concentration - - Weight 88.3 kg (194 lb 9.6 oz) 07/27/2023 10:10 AM CDT Height 182.9 cm (6') 05/22/2023 2:09 PM CDT Body Mass Index 26.39 05/22/2023 2:09 PM CDT Plan of Treatment Upcoming Encounters Date Type Department Care Team (Late st Contact Info) Description 08/10/2023 8:00 AM CDT Office Visit [facility] [address] [place] [address] Preston Yee MD [address] [place] [address] 08/10/2023 9:10 AM CDT Office Visit [address] [phone] Mike Perdue MD [address] [place] [phone] 08/31/2023 8:00 AM CDT Office Visit [facility] [address] [place] [address] Preston Yee MD [address] [place] [address] 09/20/2023 8:00 AM CDT Office Visit [facility] [address] [place] [address] Preston Yee MD [address] [place] [address] 10/12/2023 8:00 AM CDT Office Visit [facility] [address] [place] [address] Preston Yee MD [address] [place] [address] 11/02/2023 8:00 AM CDT Office Visit [facility] [address] [place] [address] Preston Yee MD [address] [facility] [place] [address] Health Maintenance Due Date Last Done Comments COVID-19 vaccine series (2022-24 season) 2022 03/23/2021, 03/02/2021 Influenza for age 9-49 10/14/2023 , 11/21/2019, 04/04/2019 BMI (ht and wt on same day) for age 18+ 05/21/2024 05/22/2023, 04/03/2022, 10/25/2021, Additional history exists Depression screening for age 12+ 07/22/2024 07/23/2023, 07/22/2023, 07/19/2023, Additional history exists Tetanus booster 11/20/2029 11/21/2019, 04/12, 04/14/2002 HIV for age 15-65 Completed 03/29/2015 Tdap Completed 11/21/2019, 04/22/2012 Hepatitis C screening for ag e 18-79 Completed 10/25/2021 Pneumococcal series for age 6-64 Completed 06/29/19 24 Procedures Procedure Name Priority Date/Time Associated Diagnosis Comments HEPATIC FUNCTION PANEL Routine 06/29/2023 8:35 AM CDT Transaminitis LIPID PANEL W REFLEX MEASURED LDL Routine 06/29/2023 8:35 AM CDT Mixed hyperlipidemia ANTI HCV Routine 10/25/2021 8:37 AM CDT Need for hepatitis C screening test ANTI HIV 1/2 Routine 03/29/2015 5:28 PM FIRE MANAGEMENT TECHNICIAN Screen for STD (sexually transmitted disease) from Last 3 Months or Most Recently Relevant to Health Maintenance Results * (ABNORMAL) LIPID PANEL W REFLEX MEASURED LDL (06/29/2023 8:35 AM CDT) CHOLESTEROL,TOTAL 270(H) 100 - 199 mg/dL 06/29/2023 5:29 PM CDT [facility] Comment: Cholesterol, Total Reference Ranges Desirable <200 mg/dL Borderline 200-239 mg/dL High >=240 mg/dL TRIGLYCERIDES 52 <150 mg/dL 06/29/2023 5:29 PM CDT [facility] HDL CHOLESTEROL 60 >40 mg/dL 5:29 PM CDT [facility] NON-HDL CHOLESTEROL 210(H) <145 mg/dl 06/29/2023 5:29 PM CDT [facility] CHOL/HDL RATIO 4.50(H) <4.50 06/29/2023 5:29 PM CDT [facility] LDL CHOLESTEROL 200(H) <=130 mg/dL 06/29/2023 5:29 PM CDT [facility] VLDL CHOLESTEROL 10 <=30 mg/dL 06/29/2023 5:29 PM CDT [facility] PROVIDER ORDERED STATUS RANDOM 06/29/2023 5:29 PM T [facility] Blood BLOOD SPECIMEN / Unknown Venipuncture / Unknown 06/29/2023 8:35 AM CDT 06/29/2023 8:48 AM CDT Imelda Denis MD CHEMISTRY [facility] [address] [place] [address], * LIVER PANEL (HEPATIC FUNCTION PANEL) (06/29/2023 8:35 AM CDT) ALBUMIN 4.7 4.0 - 4.9 g/dL 06/29/2023 5:29 PM CDT [facility] PROTEIN,TOTAL 7.2 6.0 - 8.0 g/dL 06/29/2023 5:29 PM CDT [facility] BILIRUBIN,TOTAL 0.3 0.0 - 1.2 mg/dL 06/29/2023 5:29 PM CDT [facility] BILIRUBIN,DIRECT <0.2 0.0 - 0.3 mg/dL 06/29/2023 5:29 PM CDT [facility] BILIRUBIN,INDIRE CT 06/29/2023 5:29 PM CDT [facility] Comment:Unable to calculate, Direct Bili <0.2 ALK PHOSPHATASE 65 40 - 129 IU/L 06/29/2023 5:29 PM CDT [facility] ALT (SGPT) 27 10 - 50 IU/L 06/29/2023 5:29 PM CDT [facility] AST (SGOT) 25 10 - 50 IU/L 06/29/2023 5:29 PM CDT [facility] Blood BLOOD SPECIMEN / Unknown Venipuncture / Unknown 06/29/2023 8:35 AM CDT 06/29/2023 8:48 AM CDT Imelda Denis MD CHEMISTRY [facility] [address] [place] [address], * ANTI HCV (10/25/2021 8:37 AM CDT) HEPATITIS C ANTIBODY Non-React chung Non-React chung 10/25/2021 7:48 PM CDT [facility] Comment:Antibodies to HCV no t detected; does not exclude the possibility of exposure to HCV. Blood BLOOD SPECIMEN / Unknown Venipuncture / Unknown 10/25/2021 8:37 AM CDT 10/25/2021 8:39 AM CDT Siobhan Gray DO [facility] [address] [place] [address], * ANTI HIV 1/2 (03/29/2015 5:28 PM FIRE MANAGEMENT TECHNICIAN) HIV-1/HIV-2 ANTIBODY Non-Reacti ve Non-Reacti ve 03/30/2015 1:55 PM FIRE MANAGEMENT TECHNICIAN [facility] Blood specimen (specimen) BLOOD SPECIMEN / Unknown Venipuncture / Unknown 03/29/2015 5:28 PM FIRE MANAGEMENT TECHNICIAN 03/29/2015 5:28 PM FIRE MANAGEMENT TECHNICIAN Narrative [facility] - 03/30/2015 1:55 PM FIRE MANAGEMENT TECHNICIAN HIV-1 p24 and HIV-1/HIV-2 Ab not detected Reuben Mcallister DO [facility] [address] [place] [address], [place] from Last 3 Months or Most Recently Relevant to Health Maintenance Advance Directives * Full Code (Latest Code Status on File) Date Activated Date Inactivated Comments 08/07/2021 4:07 PM 08/10/2021 5:18 PM Question Answer Comments Code Status Discussion: Reviewed Preferences * Full Code Date Activated Date Inactivated Comments 08/06/2021 5:29 PM 08/07/2021 4:07 PM Question Answer Comments Code Status Discussion: Unable to Assess Preferences, Provider to review later Care Teams Law Firm Partner Relationship Specialty Start Date End Date Pcp, No . PCP - General 10/13/21
[2023-07-30] MEDS: PROPOFOL 10 MG/ML INJ 50 MG IVP ×2 (12:12→13:23)
[2023-07-30] MEDS: MIDAZOLAM HCL 1 MG/ML inj 4 MG IVP (12:14)
[2023-07-30 12:20] LABS: Acetaminophen* < 10.0 ug/mL (10.0-30.0)
--- NOTE | 2023-07-30 12:23 | ED.SEIZURE ---
HPI - Seizure General Date Seen: 07/30/23 Chief Complaint: Seizure Stated Complaint: Seizures Time Seen by Provider: 07/30/23 11:48 Source: patient, EMS and RN notes reviewed Mode of arrival: EMS Limitations: altered mental status History of Present Illness HPI Narrative: This 32-year-old male was brought in by [facility] as a [facility]. Staff was awaiting his arrival. EMS brought in an apneic, intermittently making spontaneous respiratory effort, temple, nonresponsive patient that was intermittently showing seizure activity with arm movements. Patient was not responsive. Patient looked pale, bluish discoloration at face. Respiratory effort was not being assisted. EMS had established an 18 gauge IV and did get a blood glucose of 159. No benzodiazepines or Narcan had been administered. I believe they did attempt Narcan but patient started seizing and did not get the Narcan in him if I understand correctly. He was reported to have fallen in the shower, 2 seizures noted before EMS arrived and patient was noted to be seizing in route. Nursing staff did look up old records, history of depression but no known seizure disorder. The nurse liaison will be working to contact family. I did learn later when the crew came back to pick him up, was the same crew, that patient was disoriented when they went to pick him up. He was actually there with friends. Had had 2 seizures before they arrived. Was actually sitting, picking at his toes and mumbling. He actually did walk to the ER gurney. He then started seizing in route. They thought his friends were going to becoming but they never did show up. They did not see any drug paraphernalia at the scene. They were not concerned about the friends being altered at all. MD complaint: seizure Description of Episode: loss of consciousness and bladder incontinence Related Data Home Medications ?Medication ?Instructions ?Recorded ?Confirmed trazodone 50 mg tablet 50 mg PO QPM 10/26/22 07/22/23 atorvastatin 20 mg tablet 20 mg PO DAILY 07/22/23 07/22/23 sertraline 25 mg tablet 25 mg PO DAILY 07/22/23 07/22/23 sertraline 50 mg tablet 50 mg PO DAILY 07/22/23 07/22/23 Allergies Allergy/AdvReac Type Severity Reaction Status Date / Time No Known Allergies Allergy Verified 07/22/23 11:19 Review of Systems Status of ROS: Reports: unobtainable due to medical condition PFSH PFS Medical History Depression ?F32.A - Depression, unspecified (ICD-10) History of back problems Family History Mother Thyroid cancer Maternal Grandmother Throat cancer Lung cancer Social History Smoking Status: Former smoker What tobacco products do you use: cigarettes Smoking quit date/years: <= 15 years ago Do you use any of these nicotine containing products: None Second hand tobacco smoke exposure: No service: No Exam Const: Vital Signs, click to edit/add: Vital Signs - 24 hr 07/30/23 11:46 07/30/23 11:47 07/30/23 11:48 Pulse Rate 104 H 104 H Respiratory Rate Blood Pressure 203/106 H 190/93 H Pulse Oximetry 85 L 94 85 L Oxygen Delivery Me thod Oxygen Flow Rate 07/30/23 11:48 07/30/23 11:48 07/30/23 11:50 Pulse Rate 117 H 97 Respiratory Rate Blood Pressure 190/110 H Pulse Oximetry 97 99 Oxygen Delivery Me thod Ambu-Bag Oxygen Flow Rate 15 07/30/23 11:54 07/30/23 11:56 07/30/23 12:11 Pulse Rate 105 H 98 94 Respiratory Rate Blood Pressure 186/107 H 167/75 H 141/59 H Pulse Oximetry 99 100 100 Oxygen Delivery Me thod Oxygen Flow Rate 07/30/23 12:12 07/30/23 12:14 07/30/23 12:15 Pulse Rate 90 87 87 Respiratory Rate Blood Pressure 118/90 H Pulse Oximetry 99 99 100 Oxygen Delivery Me thod Oxygen Flow Rate 07/30/23 12:16 07/30/23 12:19 07/30/23 12:21 Pulse Rate 93 88 89 Respiratory Rate Blood Pressure 122/52 L 107/65 116/46 L Pulse Oximetry 100 100 100 Oxygen Delivery Me thod Oxygen Flow Rate 07/30/23 12:27 07/30/23 12:30 07/30/23 12:32 Pulse Rate 87 92 92 Respiratory Rate Blood Pressure 108/45 L 137/65 Pulse Oximetry 100 100 100 Oxygen Delivery Me thod Oxygen Flow Rate 07/30/23 12:36 07/30/23 12:41 07/30/23 12:45 Pulse Rate 83 80 80 Respiratory Rate Blood Pressure 127/57 L 113/64 Pulse Oximetry 100 100 100 Oxygen Delivery Me thod Oxygen Flow Rate 07/30/23 12:47 07/30/23 12:51 07/30/23 12:52 Pulse Rate 82 82 Respiratory Rate 24 Blood Pressure 116/69 118/69 Pulse Oximetry 100 100 100 Oxygen Delivery Me thod Intubated Oxygen Flow Rate Patient was quickly moved from the EMS cart onto the bed, poor coloration and unresponsive patient and ongoing seizure activity, we did initiate code blue for rapid stabilization of this patient. Nursing staff work to quickly assess patient and get monitors on, respiratory therapy assisted ventilation. His initial systolic blood pressure was in the low 200s, pulse ox with a good waveform was 50-60%. We moved to intubate this patient quickly. Anesthesia was present. Patient was making minimal respiratory effort, did have a sinus rhythm on the monitor, heard no murmur. He was making some clenching posturing with his hands, there were a few times where he did reached to grab at the mask on his face but then would note more posturing. He was never responsive meaningfully. Pupils prior to intubation were about 4-5 mm, appeared to be conjugate get in size and reactive to light, did feel that his gaze was deviated to the right and potentially the right eye a seemed a little bit more deviated than the left. Abdomen seemed to be flat, could not feel any masses. Noted no wounds or rashes or lesions on his arms and legs. He had normal male genitalia. Noted no focal traumatic area on physical examination. His initial GCS at best if you consider he might of been localizing was 5/15, he had no spontaneous eye opening at all, no verbal response. Intubation proceeded with a total of 150 mg IV propofol fall, initial 100 during intubation and then 50 mg right after intubation. He did get 2 mg IV Ativan while we were preparing for intubation for seizure management. Ordered 2 mg IV Keppra right away, did subsequently give another 2 mg IV for a total loading of 4 mg IV for ongoing seizure activity. Review of up-to-date does show that for loading for status epilepticus, 2 mg certainly is not sufficient, he may ultimately need more than 4 mg. With alcohol withdrawal, Keppra is more appropriate than other medicines. He was given ongoing benzodiazepines with Versed due to the Ativan shortage as needed. Propofol fall drip was given for post intubation management. Documenting provider has reviewed patient's vital signs: yes Course Reevaluation(s) Time of Reevaluation #1: 12:10 Reevaluation #1: Patient worked the bite block out of his mouth, did give him a subsequent IV push of propofol fall 50 mg that was still available from the 200 mg dosage from the initial rapid sequence intubation. The propofol drip is starting to run. We will see if that is enough, can consider further medicines for sedation comfort post intubation. Time of Reevaluation #2: 12:39 Reevaluation #2: Completed my phone call for transfer, nursing staff states the patient is fighting the ET tube and a question of ongoing seizure activity. Did review with the customer experience consultant in he would do boluses and continue the drip at the 100 rate, we have maxed out on that. Did order 25 mcg IV fentanyl and did do a total of 4 mg IV Versed as when I was in with patient, still was doing some posturing of his feet and ankles that looked like it could be seizure activity. Did subsequently also order 50 mg IV push propofol. Will continue to monitor this patient closely, hopefully he will be able to get to the neuro ICU shortly where they can get EEG monitoring on him. With his urine toxicology only showing the benzodiazepines which we had given and marijuana, his presentation with the hypertension, do wonder if this could be a possibility of alcoholic withdrawal. Time of Reevaluation #3: 13:26 Reevaluation #3: Did converse with dad whom just got here, patient was being loaded by EMS to transfer to [facility]. Due to weather, patient has to go by ground. He has had his situation maximally stabilize to the best that we can do here. Needs to get to the neuro ICU where he can have EEG monitoring. Consultations Consultation #1: Spoke with hospitalist Dr. Slater at [facility]. Reviewed case. He did request that they page out the customer experience consultant, requested patient go to the Neuro ICU. I did the wait on the phone while they paged Dr Ezekiel the customer experience consultant. We did review the case, he agreed with acceptance to the neuro ICU. Reviewed that we were at the maximum sedation with propofol drip, he recommended p.r.n. propofol doses, Versed and fentanyl as we were doing. The differential could be complications history of drug use, alcohol withdrawal seizures need to be considered. Patient could have developed a primary seizure disorder. He will get further cares and Neurology consultation, EEG monitoring at [facility]. Time: 12:16 Vital Signs Vital signs: Initial Vital Signs Pulse Rate 104 H 07/30/23 11:46 Blood Pressure 203/106 H 07/30/23 11:46 Blood Pressure Mean 138 H 07/30/23 11:46 Pulse Oximetry 85 L 07/30/23 11:46 Vital Signs Pulse Rate 104 H 07/30/23 11:46 Blood Pressure 203/106 H 07/30/23 11:46 Pulse Oximetry 85 L 07/30/23 11:46 Pulse Rate 82 07/30/23 12:51 Respiratory Rate 24 07/30/23 12:52 Blood Pressure 118/69 07/30/23 12:51 Pulse Oximetry 100 07/30/23 12:52 Oxygen Delivery Method Intubated 07/30/23 12:52 Oxygen Flow Rate 15 07/30/23 11:48 Medications Administered Medications: Discontinued Medications Generic Name Dose Route Start Last Admin Trade Name Freq PRN Reason Stop Dose Admin Fentanyl 25 mcg 07/30/23 12:31 07/30/23 12:37 Fentanyl 100 Mcg/2 Ml Inj IVP 07/30/23 12:32 25 mcg ONCE ONE Administration Levetiracetam 2,000 mg/ Sodium 120 mls @ 480 mls/hr 07/30/23 11:50 07/30/23 12:48 Chloride IVPB 07/30/23 11:51 Infused ONCE ONE Infusion Propofol 1,000 mg in 100 mls @ 100 mls/hr 07/30/23 11:51 07/30/23 11:42 Propofol IVPB 75 mls/hr CONT PRN Administration Levetiracetam 2,000 mg/ Sodium 120 mls @ 480 mls/hr 07/30/23 12:09 07/30/23 12:45 Chloride IVPB 07/30/23 12:10 Infused ONCE ONE Infusion Lorazepam 2 mg 07/30/23 11:50 07/30/23 11:40 Lorazepam 2 Mg/Ml Inj IVP 07/30/23 11:51 2 mg ONCE ONE Administration Midazolam HCl 2 mg 07/30/23 12:09 07/30/23 12:35 Midazolam Hcl 1 Mg/Ml Inj IVP 07/30/23 12:10 2 mg ONCE ONE Administration Midazolam HCl 4 mg 07/30/23 12:09 07/30/23 12:14 Midazolam Hcl 1 Mg/Ml Inj IVP 07/30/23 12:10 4 mg ONCE ONE Administration Midazolam HCl 2 mg 07/30/23 12:31 07/30/23 11:55 Midazolam Hcl 1 Mg/Ml Inj IVP 07/30/23 12:32 2 mg ONCE ONE Administration Midazolam HCl 2 mg 07/30/23 12:37 07/30/23 12:48 Midazolam Hcl 1 Mg/Ml Inj IVP 07/30/23 12:38 2 mg ONCE ONE Administration Propofol 150 mg 07/30/23 11:50 07/30/23 11:42 Propofol 10 Mg/Ml Inj IVP 07/30/23 11:51 150 mg ONCE ONE Administration Propofol 50 mg 07/30/23 12:40 07/30/23 13:23 Propofol 10 Mg/Ml Inj IVP 07/30/23 12:41 50 mg ONCE ONE Administration Propofol 50 mg 07/30/23 13:45 07/30/23 12:12 Propofol 10 Mg/Ml Inj IVP 07/30/23 13:46 50 mg ONCE ONE Administration MDM - Seizure Lab Data Attestation: I reviewed the patient's lab results. Labs: Lab Results 07/30/23 07/30/23 Range/Units 11:40 12:05 WBC 18.64 H (4.50-11.00) K/uL RBC 5.15 (4.30-5.90) m/uL Hgb 15.8 (13.5-17.5) gm/dL Hct 51.2 (37.0-53.0) % MCV 99 (80-100) fL MCH 31 (26-34) pg MCHC 31 L (32-36) gm/dL RDW Coeff of Dorie 13.2 (11.5-15.5) % Plt Count 308 (140-440) K/uL Neut % (Auto) 73.1 H (42.0-72.0) % Lymph % (Auto) 20.0 (20-44) % Mckinley % (Auto) 5.3 (0.0-11.0) % Eos % (Auto) 0.4 (0.0-7.0) % Baso % (Auto) 0.3 (0.0-3.0) % Neut # (Auto) 13.60 H (1.7-7.0) K/uL Lymph # (Auto) 3.70 H (0.90-2.90) K/uL Mckinley # (Auto) 1.00 H (0.00-0.90) K/UL Eos # (Auto) 0.10 (0.00-0.50) K/uL Baso # (Auto) 0.10 (0.00-0.30) K/uL Abs Immat Gran (auto) 0.20 (0.00-0.30) K/uL Imm/Tot Granulo (auto) 0.9 % INR 1.05 (0.91-1.10) APTT 27 (23-33) Seconds VBG pH 6.870 L* (7.32-7.43) VBG pCO2 74 H* (40-50) mmHG VBG pO2 53.0 H (25-47) mmHG VBG HCO3 14 L (21-28) mmol/L Sodium 148 (135-149) mmol/L Potassium 4.0 (3.6-5.1) mmol/L Chloride 112 (96-114) mmol/L Carbon Dioxide 10 L (20-32) mmol/L Anion Gap 26 H (7-15) mEq/L BUN 14 (5-24) mg/dL Creatinine 1.2 (0.5-1.5) mg/dL Estimated GFR 82 ml/min Glucose 179 H (60-115) mg/dL Lactate 16.0 H* (0.5-1.9) mmol/L Calcium 9.8 (8.4-10.6) mg/dL Total Bilirubin 0.6 (0.1-1.5) mg/dL AST 34 (12-35) U/L ALT 33 (4-50) U/L Alkaline Phosphatase 64 (40-150) U/L Troponin I < 0.01 L (0.01-0.04) ng/mL NT-Pro-B Natriuret Pep 39 pg/mL Total Protein 8.9 H (6.0-8.3) g/dL Albumin 5.7 H (3.3-5.0) g/dL Salicylates < 1.0 L (1.0-10) mg/dL Urine Opiates Screen Negative (Negative) Ur Oxycodone Screen Negative (Negative) Urine Methadone Screen Negative (Negative) Acetaminophen < 10.0 L (10.0-30.0) ug/mL Ur Barbiturates Screen Negative (Negative) U Tricyclic Antidepress Negative (Negative) Ur Phencyclidine Scrn Negative (Negative) Ur Amphetamines Screen Negative (Negative) U Methamphetamines Scrn Negative (Negative) U Benzodiazepines Scrn POSITIVE A (Negative) Urine Cocaine Screen Negative (Negative) U Marijuana (THC) Screen POSITIVE A (Negative) Ur Drug Screen Comment See Note Ethyl Alcohol < 0.01 L (0.01-0.03) % Imaging Data CT- Other: Attestation: I have reviewed the pertinent imaging results. Radiologist's impression: Patient: QUINN TAFOYA Facility:?[facility] Patient ID:?[id number] Site Patient ID:?[id number]. Site :?1990 Study:?CT-Spine Cervical WITHOUT-07/30/2023 12:07:44 PM Ordering Physician:Lydia Lopez Final Report: INDICATION: Fall, seizure TECHNIQUE: CT cervical spine without contrast. COMPARISON: None FINDINGS: Vertebrae: No evidence of acute fracture. Ossification of the spinous process of C7 consistent with an old fracture or congenital nonunion. Discs and facet joints: Disc spaces and facets are within normal limits. Extraspinal findings: Enteric tube and endotracheal tube partially included on the exam. IMPRESSION: No evidence of acute cervical spine fracture. 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 Please note that all CT scans at this facility use dose modulation, iterative reconstruction, and/or weight-based dosing when appropriate to reduce radiation dose to as low as reasonably achievable. Dictated by Josh Garay MD @ 07/30/2023 12:42:16 PM (Electronic Signature) CT scan - head: Attestation: I have reviewed the pertinent imaging results. Radiologist's impression: Patient: QUINN TAFOYA Facility:?[facility] Patient ID:?[id number] Site Patient ID:?[id number]. Site :?1990 Study:?CT-Head WITHOUT-07/30/2023 12:08:07 PM Ordering Physician:Lydia Lopez Final Report: INDICATION: Seizure, fall TECHNIQUE: CT head without contrast. COMPARISON: None. FINDINGS: CSF spaces: Within normal limits for age. Brain parenchyma: The temple-white differentiation is normal. No sign of mass, hemorrhage, or midline shift. Skull base and calvarium: Mild mucosal thickening paranasal sinuses. Nasogastric tube partially included in the examination. The visualized orbits are grossly unremarkable. No skull fractures. IMPRESSION: Unremarkable noncontrast head CT. Please note that all CT scans at this facility use dose modulation, iterative reconstruction, and/or weight-based dosing when appropriate to reduce radiation dose to as low as reasonably achievable. Dictated by Josh Garay MD @ 07/30/2023 12:35:28 PM (Electronic Signature) Chest x-ray: Attestation: I have reviewed the pertinent imaging results. My impression: Did review the portable chest x-ray well on the machine, reviewed with respiratory therapy that the tube need to be advanced further down. Have reviewed the radiology reading. Radiologist's impression: Patient: QUINN TAFOYA Facility:?[facility] Patient ID:?[id number] Site Patient ID:?[id number]. Site :?1990 Study:?XRay-Chest 1 view portable-07/30/2023 11:59:54 AM Ordering Physician:?Alia Lopez Final Report: INDICATION: Post intubation placement. TECHNIQUE: Chest 1 views. COMPARISON: None. FINDINGS: Cardiovascular and mediastinum: Heart size and vasculature are normal in caliber and appearance. Endotracheal tube with tip approximately 7.5 centimeters from the caleb. Lungs and pleural spaces: Lungs are clear. No sign of infiltrate or mass. No sign of pleural effusion. No pneumothorax. Bones and soft tissues: No significant findings. IMPRESSION: Endotracheal tube with tip approximately 7.5 centimeters from the caleb. Consider adjustment. Dictated by Jj Dubose MD @ 07/30/2023 12:17:49 PM (Electronic Signature) ECG Data Attestation: I personally reviewed and interpreted this ECG as follows: (Normal sinus rhythm, 82 beats per minute, normal EKG, QT corrected 448 milliseconds pr) ECG interpretation date: 07/30/23 ECG interpretation time: 13:01 Critical Care Time Critical Care Time Critical Care Time: Yes Attestation: The patient required my highest level preparedness to intervene emergently and I personally spent this critical care time directly and personally managing the patient. This critical care time included: Obtaining a history; Examining the patient; Pulse oximetry; Ordering and reviewing of studies; Arranging urgent treatment with development of a management plan; Evaluation of patients response to treatment; Frequent reassessment discussions with other providers. This critical care time was performed to assess and manage the high probability of imminent life-threatening deterioration that could result in multiorgan failure. It was exclusive of separate billable procedures and treating other patients and teaching time. Total Critical Care Time in Minutes: 110 Discharge Plan Discharge Clinical Impression: Status epilepticus Patient Disposition: Xfer Other Discharge Location: [facility] Prescriptions: No Action trazodone 50 mg tablet 50 mg PO QPM atorvastatin 20 mg tablet 20 mg PO DAILY sertraline 50 mg tablet 50 mg PO DAILY sertraline 25 mg tablet 25 mg PO DAILY Stand Alone Forms: [employer] Info Instructions
[2023-07-30 12:24] LABS: Amphetamine Screen Urine Negative (Negative); Barbiturate Screen Urine Negative (Negative); Benzodiazepines Screen Urine POSITIVE (Negative); Cannabinoid Screen Urine POSITIVE (Negative); Cocaine Screen Urine Negative (Negative); Methadone Screen Urine Negative (Negative); Methamphetamines Screen Urine Negative (Negative); Opiate Screen Urine Negative (Negative); Oxycodone Screen Urine Negative (Negative); Phencyclidine Screen Urine Negative (Negative); Tricyclic Antidepressant Urine Negative (Negative)
[2023-07-30 12:34] LABS: Chloride* 112 mmol/L (96-114)
[2023-07-30 12:35] LABS: Albumin* 5.7 g/dL (3.3-5.0); Sodium* 148 mmol/L (135-149)
[2023-07-30] MEDS: fentaNYL 100 MCG/2 ML inj 25 MCG IVP (12:37)
[2023-07-30 12:38] LABS: Alanine Aminotransferase* 33 U/L (4-50); Alkaline Phosphatase* 64 U/L (40-150); Anion Gap 26 mEq/L (7-15); Aspartate Amino Transferase* 34 U/L (12-35); Bilirubin Total* 0.6 mg/dL (0.1-1.5); Blood Urea Nitrogen* 14 mg/dL (5-24); Calcium* 9.8 mg/dL (8.4-10.6); Carbon Dioxide* 10 mmol/L (20-32); Creatinine* 1.2 mg/dL (0.5-1.5); Estimated Glomerular Filt Rate 82 ml/min; Glucose* 179 mg/dL (60-115); Total Protein* 8.9 g/dL (6.0-8.3)
[2023-07-30 12:44] LABS: Ethanol* < 0.01 % (0.01-0.03); Salicylate* < 1.0 mg/dL (1.0-10)
[2023-07-30 12:54] LABS: NT Pro B Type NatriureticPept* 39 pg/mL; Troponin I* < 0.01 ng/mL (0.01-0.04)
== END 2023-07-30 14:52 | disposition other institution (70) ==
PROVIDERS: Emergency Provider Family Medicine
DX: G40.901 Epilepsy, unspecified, not intractable, with status epilepticus (principal)
CPT/HCPCS: 31500; 36415; 70450; 71045; 72125; 80053; 80143; 80179; 80306; 82077; 82803; 83605; 83880; 84484; 85025; 85610; 85730; 93005; 94761; 96365; 96366; 96375; 96376; 99285; 99291; 99292; J1953; J2060; J2250; J2704; J3010

== ENCOUNTER 2023-07-30 13:02 | Outpatient (CLI) | payer OTHER, SELFPAY | END 2023-07-30 13:03 | disposition home or self-care (01) | LOC: AMB 07-31 23:12 | PROVIDERS: Visit Provider Family Medicine | DX: G40.901 Epilepsy, unspecified, not intractable, with status epilepticus (principal) | CPT/HCPCS: A0425; A0433 ==

== ENCOUNTER 2023-09-17 13:00 | Outpatient (RCR) | payer OTHER, SELFPAY | END 2024-01-15 12:40 | disposition home or self-care (01) | PROVIDERS: PCP Family Medicine; Visit Provider Physical Medicine & Rehabilitation | DX: R56.9 Unspecified convulsions (principal); Z51.89 Encounter for other specified aftercare | CPT/HCPCS: 97161; 97165; 97530 ==